=== PATIENT | female | born 1990 | race Caucasian/White ===

== ENCOUNTER → 2017-06-02 12:59 | Outpatient (CLI) | payer BC, MEDICAID, SELFPAY ==
--- NOTE | 2017-06-02 13:00 | HPBI_ITS ---
MAMMOGRAPHY - BILATERAL DIAGNOSTIC REASON FOR EXAM: Female, 26 years old. Positive BRCA1 gene. Right breast lump. PERTINENT HISTORY: Mother with breast cancer. TECHNIQUE: Digital bilateral breast epi (3D mammographic acquisition) in the CC and MLO projections. 2-D mediolateral oblique (MLO) and craniocaudad (CC) views of both breasts were obtained. CAD: Full Field Digital Mammography with Computer Added Detection was performed. COMPARISON: None. Baseline examination. FINDINGS: Breast Composition: There are scattered areas of fibroglandular density. There are no dominant masses or suspicious calcifications. No other significant abnormalities are identified. HPBI/DIAG MAMM W/CAD, BILAT IMPRESSION: Negative diagnostic mammogram. With the patient's history of a palpable lump in the right breast, correlation with ultrasound is recommended. ASSESSMENT CATEGORY: BIRADS Category 0: Incomplete. Need additional imaging evaluation. A letter regarding these results will be sent to the patient by the facility within 30 days. Approximately 10% of breast cancers are not detected by mammography. A normal mammogram should not delay biopsy of a clinically suspicious abnormality. Electronically Signed: Raúl Luke MD at 14:52 EST Tel [phone], Service support ,
--- NOTE | 2017-06-02 13:00 | US_ITS ---
STUDY: ULTRASOUND BREAST - RIGHT REASON FOR EXAM: Female, 26 years old. Palpable lump in the right breast. Right breast pain. TECHNIQUE: Axial and longitudinal images of the RIGHT breast were performed with a high resolution ultrasound transducer. COMPARISON: Comparison is made with prior mammogram done earlier today. FINDINGS: RIGHT Breast: The lower inner quadrant of the right breast was examined by ultrasound. No solid or cystic masses seen. US/Breast Limited Unilateral IMPRESSION: Unremarkable sonographic examination of the lower inner quadrant of the right breast. ASSESSMENT CATEGORY: BIRADS Category 1: Negative. A letter regarding these results will be sent to the patient by the facility within 30 days. Electronically Signed: Raúl Luke MD at 15:23 EST Tel [phone], Service support ,
== END ==
PROVIDERS: Family Provider Internal Medicine; PCP Internal Medicine; Visit Provider Obstetrics & Gynecology
DX: N63.10 Unspecified lump in the right breast, unspecified quadrant (principal); N64.4 Mastodynia
CPT/HCPCS: 76642; 77062; 77066; G0279

== ENCOUNTER → 2017-08-24 16:08 | Outpatient (CLI) | payer BC, MEDICAID, SELFPAY ==
[2017-08-24 17:48] LABS: Chlamydia Trachomatis by PCR Negative (Negative); Neisserai gonorrhoeae by PCR Negative (Negative); Probe Check PASS; Sample Adequacy Control PASS; Specimen Processing Control PASS
== END ==
PROVIDERS: Family Provider Internal Medicine; PCP Internal Medicine; Visit Provider Nurse Practitioner Women's Health
DX: Z11.3 Encounter for screening for infections with a predominantly sexual mode of transmission (principal)
CPT/HCPCS: 87491; 87591

== ENCOUNTER → 2017-08-25 11:45 | Outpatient (CLI) | payer BC, MEDICAID, SELFPAY ==
[2017-08-26 11:42] LABS: HIV - WCH Non-Reactive (Nonreactive)
[2017-08-27 03:07] LABS: HCV Quant. RNA PCR HCV Not Detected IU/mL (.)
[2017-08-27 13:54] LABS: HEPATITIS B SURFACE AG Negative (Negative); HSV 2 IgG < 0.91 index (0.00-0.90)
[2017-08-28 01:20] LABS: Rapid Plasmin Reagin (RPR) NONREACTIVE (NONREACTIVE)
== END ==
PROVIDERS: Family Provider Internal Medicine; PCP Internal Medicine; Visit Provider Nurse Practitioner Women's Health
DX: Z11.3 Encounter for screening for infections with a predominantly sexual mode of transmission (principal)
CPT/HCPCS: 36415; 86592; 86695; 86696; 86703; 87340; 87522

== ENCOUNTER → 2018-01-18 21:33 | Outpatient (CLI) | payer BC, SELFPAY ==
[2018-01-18 23:56] LABS: Chlamydia Trachomatis by PCR Negative (Negative); Neisserai gonorrhoeae by PCR Negative (Negative); Probe Check PASS; Sample Adequacy Control PASS; Specimen Processing Control PASS
[2018-01-31 15:36] LABS: HPV Reflexed? NOT INDICATED
== END ==
PROVIDERS: Family Provider Internal Medicine; PCP Internal Medicine; Referring Provider Nurse Practitioner Women's Health; Visit Provider Nurse Practitioner Women's Health
DX: Z12.4 Encounter for screening for malignant neoplasm of cervix (principal); Z11.3 Encounter for screening for infections with a predominantly sexual mode of transmission
CPT/HCPCS: 87491; 87591; 88175; G0145

== ENCOUNTER 2018-02-07 02:16 | Emergency (ER) | payer BC, SELFPAY ==
[2018-02-07 02:18] VITALS: BP 128/88; PULSE 118; RESP 16; TEMP 36.4; O2SAT 98; BMI 40.3
--- NOTE | 2018-02-07 02:35 | ED.DCSUM_ITS ---
- ER Visit Summary Date of Service: 02/07/18 Chief Complaint: Ear pain, sore throat History of Present Illness: The patient is a 27 F presents to the emergency department multiple complaints. Patient states that she had upper respiratory illness for the past few days. She had worsening sore throat and nasal drainage. She went to urgent care on Thursday. She was diagnosed with a sinus infection and placed on azithromycin. She states she got it filled yesterday and has taken 1 dose. She feels like she is not getting any better. She has had persistent pain in both ears, left greater than right. She is also had worsening sore throat. She has been using ibuprofen with some relief. She has not had any further fever. She said no other vomiting. She denies any cough or shortness of breath. Physical Examination: Vital signs reviewed General: Well-nourished, well-developed Head: Normocephalic, atraumatic Eyes: Pupils equal and reactive, extraocular muscles intact ENT: Posterior oropharynx is widely patent. There is some cobblestoning. Status post tonsillectomy. No evidence of retropharyngeal abscess. No trismus. Right TM shows mild erythema and fluid, but no distortion of the landmarks. Left TM there is erythema and distortion. There is no mastoid tenderness bilaterally. Neck, supple, anterior lymphadenopathy Heart: Regular rate and rhythm Respiratory: No distress, clear bilaterally Abdomen: Soft, nontender, nondistended, no peritoneal signs Back: Nontender Extremities: Nontender, no edema, no cords Skin: Normal color no rash Neuro: Alert and oriented, no focal or lateralizing deficits Test Results: [] Emergency Department Course and Treatment: The patient is already on antibiotic therapy. She has no evidence of abscess, mastoiditis, or other dangerous process. I do feel that she will benefit from prednisone to help with her inflammation. She is given her first dose here. Did patient financial counselor her that she needs to complete the antibiotics even if she is feeling better. I do feel that she is safe for outpatient therapy. She was counseled on concerning symptoms and reasons to return. The patient will be discharged home. Treatment Plan: [] Disposition: Discharge Impression: 1. URI This note was generated with [employer] dictation software. It may contain incorrect words, spelling, and punctuation that were not noted in review of the chart prior to signing ED Disposition - Plan for ED Patient: Chief Complaint: General Illness Instructions: ED Otitis Media Acute Adult Prescriptions: Prednisone [Deltasone] 60 mg PO DAILY #15 tab Referrals: Fredrick Gonzales MD [Primary Care Provider] -
[2018-02-07] MEDS: HYDROcodone Bitartrate/Apap 5/325 Tablet PO (02:40)
[2018-02-07] MEDS: predniSONE 20 MG Tablet 60 MG PO (02:40)
== END 2018-02-07 02:42 | disposition home or self-care (01) ==
LOC: ED 02:35
PROVIDERS: Emergency Provider Emergency Medicine; Family Provider Family Medicine; PCP Family Medicine
DX: J06.9 Acute upper respiratory infection, unspecified (principal); H92.03 Otalgia, bilateral; Z79.899 Other long term (current) drug therapy
CPT/HCPCS: 99283

== ENCOUNTER → 2018-03-01 08:51 | Outpatient (CLI) | payer BC, SELFPAY ==
[2018-02-07 02:18] VITALS: BMI 40.3
--- NOTE | 2018-03-01 08:54 | US_ITS ---
STUDY: ULTRASOUND BREAST - RIGHT REASON FOR EXAM: Female, 27 years old. Pain in the right breast. TECHNIQUE: Axial and longitudinal images of the RIGHT breast were performed with a high resolution ultrasound transducer. COMPARISON: Comparison is made with prior mammogram done earlier in the day and prior ultrasound of the right breast dated June 02, 2017. FINDINGS: RIGHT Breast: There is homogeneous fibroglandular tissue. No solid or cystic mass lesion is seen. US/Breast Limited Unilateral IMPRESSION: No sonographic abnormality is seen. ASSESSMENT CATEGORY: BIRADS Category 1: Negative. A letter regarding these results will be sent to the patient by the facility within 30 days. Electronically Signed: Raúl Luke MD at 10:48 EST Tel [phone], Service support ,
--- NOTE | 2018-03-01 08:54 | BI_ITS ---
MAMMOGRAPHY - UNILATERAL DIAGNOSTIC: RIGHT BREAST REASON FOR EXAM: Female, 27 years old. Patient tested positive for the BRCA 1 gene. PERTINENT HISTORY: Mother with breast cancer. TECHNIQUE: Digital unilateral breast epi (3D mammographic acquisition) in the CC and MLO projections. 2-D mediolateral oblique (MLO) and craniocaudad (CC) views of both breasts were obtained. CAD: Full Field Digital Mammography with Computer Added Detection was performed. COMPARISON: Comparison is made with prior examination dated December 31, 2017. FINDINGS: Breast Composition: There are scattered areas of fibroglandular density. There are no dominant masses or suspicious calcifications. Stable small right axillary lymph nodes. No other significant abnormalities are identified. There has been no significant change since the prior study. BI/DIAG MAMM W/CAD, UNILAT IMPRESSION: Stable unilateral diagnostic mammogram. One year follow-up mammogram recommended. (A) ASSESSMENT CATEGORY: BIRADS Category 2: Benign. A letter regarding these results will be sent to the patient by the facility within 30 days. Approximately 10% of breast cancers are not detected by mammography. A normal mammogram should not delay biopsy of a clinically suspicious abnormality. Electronically Signed: Raúl Luke MD at 11:03 EST Tel [phone], Service support ,
== END ==
LOC: OPUS 08:51
PROVIDERS: Family Provider Family Medicine; PCP Family Medicine; Referring Provider Nurse Practitioner Women's Health; Visit Provider Nurse Practitioner Women's Health
DX: R92.8 Other abnormal and inconclusive findings on diagnostic imaging of breast (principal); Z15.01 Genetic susceptibility to malignant neoplasm of breast; Z15.09 Genetic susceptibility to other malignant neoplasm
CPT/HCPCS: 76642; 77061; 77065; G0279

== ENCOUNTER → 2018-06-21 12:17 | Outpatient (CLI) | payer BC, SELFPAY ==
[2018-06-21 10:45] VITALS: BMI 39.2
[2018-06-21 15:06] LABS: Chlamydia Trachomatis by PCR Negative (Negative); Neisserai gonorrhoeae by PCR Negative (Negative); Probe Check PASS; Sample Adequacy Control PASS; Specimen Processing Control PASS
== END ==
PROVIDERS: Family Provider Family Medicine; PCP Family Medicine; Referring Provider Obstetrics & Gynecology; Visit Provider Obstetrics & Gynecology
DX: Z11.3 Encounter for screening for infections with a predominantly sexual mode of transmission (principal)
CPT/HCPCS: 87491; 87591

== ENCOUNTER 2018-07-22 21:36 | Emergency (ER) | payer BC, SELFPAY ==
[2018-06-21 10:45] VITALS: BMI 39.2
[2018-07-22 21:37] VITALS: BP 155/103; PULSE 96; RESP 16; TEMP 36.6; O2SAT 98; BMI 40.8
--- NOTE | 2018-07-22 21:51 | US_ITS ---
STUDY: ABDOMINAL ULTRASOUND - RIGHT UPPER QUADRANT REASON FOR VISIT: Female, 27 years old. Right upper quadrant abdominal pain. TECHNIQUE: Ultrasound evaluation of the right upper quadrant was performed with real-time and static montanez-scale imaging. TECHNICAL QUALITY: Adequate. COMPARISON: CT of the abdomen and pelvis dated June 15, 2016. FINDINGS: Liver: The liver measures 18.4 cm. There is increased echogenicity consistent with fatty infiltration. The bile ducts are within normal limits. There is hepatic color flow. The direction of portal flow is hepatopetal. There is no demonstrated mass lesion. Gallbladder: Normal distended gallbladder. The gallbladder wall measures 1.7 mm. There is a negative sonographic Miguel's sign. There is no pericholecystic fluid. There are no gallstones. Common Bile Duct (C.B.D.): The common bile duct measures 4.2 mm. Pancreas: Normal size of the head and body of the pancreas. Pancreatic tail is not visualized secondary to bowel gas. There is normal echogenicity of the pancreas. There is no demonstrated pancreatic mass or cyst. Right Kidney: Normal size of the right kidney. The right kidney measures 11.2 x 4.9 x 4.7 cm. Normal renal cortex. The right cortex measures 1.2 cm. There is no demonstrated renal mass or cyst. There is no right hydronephrosis. US/Gallbladder IMPRESSION: 1. Hepatic steatosis. 2. No sonographic evidence for cholelithiasis. Electronically Signed: Bibi Bryan MD at 23:21 EDT , Service support ,
[2018-07-22] MEDS: Ondansetron 4 MG/2 ML Vial IV (22:34)
[2018-07-22] MEDS: 0.9% Normal Saline 1,000 ML 1000 ML IV (22:34)
[2018-07-22] MEDS: Dicyclomine 20 MG/2 ML Vial IM (22:36)
[2018-07-22 22:38] LABS: Absolute Lymphocyte Count 2.16 X10^3/ul (0.83-4.51); Absolute Neutrophil Count 7.4 X10^3/uL (2.0-7.7); Basophil# 0.02 X10^3/uL; Basophil% 0.2 % (0-1); Eosinophil# 0.28 X10^3/uL; Eosinophils% 2.6 % (0-5); Hematocrit 42.2 % (37-47); Hemoglobin 14.7 g/dl (12.0-15.0); Lymphocyte # 2.16 X10^3/ul (4.0); Lymphocyte % 20.1 % (19-41); Mean Corp Hgb Conc 34.8 g/gl (32-36); Mean Corpuscular Hgb 29.3 pg (27.0-32.0); Mean Corpuscular Volume 84.2 fL (81-99); Mean Platelet Vol. 11.3 fl (6.2-12.0); Monocyte# 0.86 X10^3/uL; Neutrophil % 68.9 % (47-70); POSITIVE COUNT NO; POSITIVE DIFFERENTIAL NO; POSITIVE MORPHOLOGY NO; Platelet Count 320 K/mm3 (150-450); RBC Distribution Width SD 39.6 fl (35.1-43.9); Red Blood Count 5.01 M/mm3 (4.2-5.4); White Blood Count 10.7 K/mm3 (4.4-11.0)
[2018-07-22 22:57] LABS: ALB/GLOB Ratio 0.9 RATIO (0.9-2.4); AST(SGOT) 14 U/L (15-37); Alanine Aminotransfer ALT/SGPT 16 U/L (13-56); Albumin, Serum 3.6 g/dL (3.2-5.0); Alkaline Phosphatase 64 U/L (45-117); Anion Gap 8 (5-15); BUN 8 mg/dL (7-18); BUN/Creat Ratio 8.6 RATIO (10-20); Calcium,Total 8.5 mg/dL (8.5-10.1); Chloride 104 mmol/L (98-107); Creatinine, Serum 0.93 mg/dL (0.55-1.02); EST Glomerular Filtration Rate 75 mL/min (>60); Est Glom Filt Rate - Afr Amer 91 mL/min (>60); Estimated Creatinine Clearance 83.56 ml/min; Globulin 3.8 g/dL (2.2-4.2); Glucose 94 mg/dL (74-106); Lipase 64 U/L (73-393); Potassium 3.9 mmol/L (3.5-5.1); Protein, Total 7.4 g/dL (6.4-8.2); Sodium Level 137 mmol/L (136-145)
[2018-07-22 23:12] LABS: Lactic Acid 0.8 mmol/L (0.4-2.0)
--- NOTE | 2018-07-22 23:33 | ED.VISSUMM ---
- ER Visit Summary Date of Service: 07/22/18 Chief Complaint: [Abdominal pain, vomiting, diarrhea] History of Present Illness: The patient is a 27 F [presents the emergency department symptoms that started around 6:30 AM today. Patient was seen by primary care physician and was referred to gastroenterology for follow-up and was ordered an outpatient right upper quadrant ultrasound. Patient complains of upper right abdominal discomfort that is intermittent and describes it as sharp and stabbing that typically will last less than a minute and then returned. Food does not seem infected. Patient also had 5-10 watery stools and she is had 5-10 episodes of vomiting. She denies any fever. She denies any urinary symptoms. She does not think she is .] Physical Examination: [HEENT-PERRLA, EOMI. Cranial nerves II through XII grossly intact. TMs clear. Mucous membranes moist. No adenopathy. Cardiovascular-regular rate and rhythm without murmur or ectopy Lungs-clear to auscultation, chest wall stable without crepitus or subcu emphysema Abdomen-normoactive bowel sounds, soft. Patient has tenderness palpation over right upper quadrant with guarding. There is no rebound, rigidity, or perineal signs. No tenderness over McBurney's. Extremities-intact ?4, normal range of motion, normal pulses, atraumatic] Test Results: [CBC with differential showed a white blood cell count of 10.7, hemoglobin 14.7, hematocrit 42, platelets 320. Chemistries unremarkable. Total bili was 0.60. Alk phos was 64, ALT 16, AST 14, lipase 64. Lactate was 0.8. Gallbladder ultrasound showed hepatic steatosis no evidence for cholecystitis.] Emergency Department Course and Treatment: [Patient received a liter normal same fluid bolus as well as Zofran and Bentyl and she did feel improved.] Treatment Plan: [Patient advised to keep her appointment with gastroenterology. Patient will be given a prescription for Zofran and Bentyl. I suspect she may have a viral gastroenteritis.] Disposition: [Discharged home in stable condition] Impression: [Viral gastroenteritis Abdominal pain] This note was generated with [employer] dictation software. It may contain incorrect words, spelling, and punctuation that were not noted in review of the chart prior to signing ED Disposition - Plan for ED Patient: Referrals: Fredrick Gonzales MD [Primary Care Provider] -
--- NOTE | 2018-07-22 23:37 | ED.DEP ---
ED Disposition - Plan for ED Patient: Instructions: ED Gastroenteritis Viral Prescriptions: Ondansetron [Zofran Odt] 4 mg PO Q8H PRN PRN #10 tab PRN Reason: Nausea Dicyclomine HCl [Bentyl] 20 mg PO TIDAC #20 cap Referrals: Fredrick Gonzales MD [Primary Care Provider] - 3-5 Days
[2018-07-22 23:54] VITALS: BP 143/85; PULSE 64; RESP 16
[2018-07-22] MEDS: Ondansetron ODT 4 MG Tablet PO (23:54)
[2018-07-23 00:21] LABS: Internal QC Validated? YES +Cl - CLEAR BKGD; Pregnancy, Serum, hCG Quali. NEGATIVE Negative
== END 2018-07-22 23:55 | disposition home or self-care (01) ==
PROVIDERS: Emergency Provider Emergency Medicine; Family Provider Family Medicine; PCP Family Medicine
DX: A08.4 Viral intestinal infection, unspecified (principal); R10.11 Right upper quadrant pain; K76.0 Fatty (change of) liver, not elsewhere classified; F32.9 Major depressive disorder, single episode, unspecified; Z79.899 Other long term (current) drug therapy
CPT/HCPCS: 76705; 80053; 83605; 83690; 84703; 85025; 96361; 96372; 96374; 99283; J7030; A4216; J2405

== ENCOUNTER 2018-07-24 02:31 | Emergency (ER) | payer BC, SELFPAY ==
[2018-07-24 02:32] VITALS: BP 159/99; PULSE 86; RESP 16; TEMP 36.4; O2SAT 100; BMI 40.8
--- NOTE | 2018-07-24 02:36 | ED.RN ---
WAS UNABLE TO LEAVE HOUSE TO GET YESTERDAYS RX FILLED.
[2018-07-24] MEDS: 0.9% Normal Saline 1,000 ML 1000 ML IV (03:24)
[2018-07-24] MEDS: proMETHazine 25 MG/ML Syringe 12.5 MG IV (03:24)
[2018-07-24 03:37] LABS: Absolute Lymphocyte Count 2.05 X10^3/ul (0.83-4.51); Absolute Neutrophil Count 5.9 X10^3/uL (2.0-7.7); Basophil# 0.04 X10^3/uL; Basophil% 0.5 % (0-1); Eosinophil# 0.33 X10^3/uL; Eosinophils% 3.7 % (0-5); Hematocrit 39.2 % (37-47); Hemoglobin 13.7 g/dl (12.0-15.0); Lymphocyte # 2.05 X10^3/ul (4.0); Lymphocyte % 23.1 % (19-41); Mean Corp Hgb Conc 34.9 g/gl (32-36); Mean Corpuscular Hgb 29.4 pg (27.0-32.0); Mean Corpuscular Volume 84.1 fL (81-99); Mean Platelet Vol. 11.1 fl (6.2-12.0); Monocyte# 0.56 X10^3/uL; Monocyte% 6.3 % (0-10); Neutrophil # 5.88 X10^3/uL (2.7-7.7); Neutrophil % 66.2 % (47-70); Platelet Count 314 K/mm3 (150-450); RBC Distribution Width CV 12.8 % (11.6-14.6); RBC Distribution Width SD 38.6 fl (35.1-43.9); Red Blood Count 4.66 M/mm3 (4.2-5.4); White Blood Count 8.9 K/mm3 (4.4-11.0)
[2018-07-24 03:38] LABS: POSITIVE COUNT NO; POSITIVE DIFFERENTIAL NO; POSITIVE MORPHOLOGY NO
[2018-07-24 03:57] LABS: ALB/GLOB Ratio 0.9 RATIO (0.9-2.4); AST(SGOT) 18 U/L (15-37); Alanine Aminotransfer ALT/SGPT 18 U/L (13-56); Albumin, Serum 3.3 g/dL (3.2-5.0); Alkaline Phosphatase 56 U/L (45-117); Anion Gap 7 (5-15); BUN 7 mg/dL (7-18); BUN/Creat Ratio 8.2 RATIO (10-20); Calcium,Total 8.4 mg/dL (8.5-10.1); Chloride 108 mmol/L (98-107); Creatinine, Serum 0.86 mg/dL (0.55-1.02); EST Glomerular Filtration Rate 83 mL/min (>60); Est Glom Filt Rate - Afr Amer 100 mL/min (>60); Estimated Creatinine Clearance 90.36 ml/min; Globulin 3.8 g/dL (2.2-4.2); Glucose 116 mg/dL (74-106); Lipase 74 U/L (73-393); Potassium 3.6 mmol/L (3.5-5.1); Protein, Total 7.1 g/dL (6.4-8.2); Sodium Level 140 mmol/L (136-145)
--- NOTE | 2018-07-24 04:06 | ED.DCSUM_ITS ---
- ER Visit Summary Date of Service: 07/24/18 Chief Complaint: Abdominal pain nausea vomiting and diarrhea History of Present Illness: The patient is a 27 F who presents with abdominal pain and vomiting. She complains of initially right upper quadrant abdominal pain that is now become more diffuse and cramping. It began about 3 days ago. She also reports nausea vomiting and diarrhea for the past 2 days. She saw her primary care physician and had an outpatient right upper quadrant ultrasound which showed hepatic steatosis. She was then seen in the emergency department and had unremarkable laboratory studies. She was treated symptomatically with fluids and Zofran and Bentyl. She did feel better on reevaluation. She notes that she has had a stomach issues really for the past 6 years. She has been referred to gastroenterology. She does admit to marijuana use and her last use was the day her current symptoms began. Physical Examination: Afebrile vitals unremarkable Moist mucous membranes Heart regular rate and rhythm Lungs are clear Abdomen soft no reproducible tenderness no guarding no rebound Test Results: CBC BMP hepatic function lipase all normal. Emergency Department Course and Treatment: Patient was treated with IV fluids and Phenergan. She feels much better on reevaluation. We discussed the possibility of cannabinoid hyperemesis syndrome. She notes that she was told by a friend who is a nurse that her symptoms could be related to marijuana. She was counseled on cessation. She was discharged to follow-up as an outpatient and advised to keep her gastroenterology appointment. She understands to return for new or worsening symptoms. She is in agreement with the plan. She was discharged. Treatment Plan: [] Disposition: Discharge Impression: Abdominal pain Vomiting, possible cannabinoid hyperemesis syndrome This note was generated with [employer] dictation software. It may contain incorrect words, spelling, and punctuation that were not noted in review of the chart prior to signing ED Disposition - Plan for ED Patient: Referrals: Fredrick Gonzales MD [Primary Care Provider] -
--- NOTE | 2018-07-24 04:06 | ED.DEP ---
ED Disposition - Plan for ED Patient: Instructions: ED Abdominal Pain Unkn Cause, ED Diet Vomiting Diarrhea Prescriptions: proMETHazine tablet [Phenergan] 25 mg PO Q6H PRN PRN #10 tab PRN Reason: Nausea Referrals: Fredrick Gonzales MD [Primary Care Provider] -
== END 2018-07-24 04:19 | disposition home or self-care (01) ==
LOC: ED 03:15
PROVIDERS: Emergency Provider Emergency Medicine; Family Provider Family Medicine; PCP Family Medicine
DX: R10.11 Right upper quadrant pain (principal); R11.2 Nausea with vomiting, unspecified; R19.7 Diarrhea, unspecified; Z79.899 Other long term (current) drug therapy
CPT/HCPCS: 80053; 83690; 85025; 96361; 96374; 99283; J7030; A4216

== ENCOUNTER → 2018-09-14 13:57 | Outpatient (CLI) | payer BC, SELFPAY ==
[2018-09-14 10:44] VITALS: BMI 40.8
[2018-09-14 19:52] LABS: Chlamydia Trachomatis by PCR Negative (Negative); Neisserai gonorrhoeae by PCR Negative (Negative); Probe Check PASS; Sample Adequacy Control PASS; Specimen Processing Control PASS
== END ==
PROVIDERS: Family Provider Family Medicine; PCP Family Medicine; Referring Provider Nurse Practitioner Women's Health; Visit Provider Nurse Practitioner Women's Health
DX: N89.8 Other specified noninflammatory disorders of vagina (principal); Z11.3 Encounter for screening for infections with a predominantly sexual mode of transmission
CPT/HCPCS: 87070; 87086; 87088; 87205; 87491; 87591

== ENCOUNTER 2019-03-21 09:00 | Outpatient (RCR) | payer BC, SELFPAY ==
[2018-12-17 11:01] VITALS: BMI 40.0
--- NOTE | 2019-03-21 09:05 | BH.SGPN.GN ---
Behaviors/Verbalizations/Mental Status: [] Eye contact is good. Motor activity is appropriate. Appearance is casual. Speech is Appropriate. Mood is anxious. Affect is congruent. Thoughts are linear and logical. No evidence of psychosis. Reviewed daily check in sheet and no reports of suicidal ideations or intent. Client Response/Progress/Benefit: [] Pt participated at times during the group discussion. Emotion for today is anxious. This was pt's first day in IOP. Shared that she entered IOP to Feel like I'm in control of my life and emotions. Sahred the impact that depression has has on her and her functioning in the past several weeks. States that today and this weekend have actually been not that bad ... I haven't been crying all the time. No progress noted as this was pt's first day. Benefited from group support and encouragement. Will continue in IOP to maintain safety, prevent decompensation, and increase healthy coping. Narrative Note: []
--- NOTE | 2019-03-21 10:15 | BH.SGPN.GN ---
Behaviors/Verbalizations/Mental Status: [Client alert and oriented, casually dressed and appropriately groomed. Eye contact good. Motor activity appropriate. Speech within normal limits. Affect congruent, mood anxious, depressed. Thoughts linear, logical, no signs of hallucinations or delusions.] Client Response/Progress/Benefit: [Client able to challenge herself to be an active participant in group despite being first day in IOP tx. Pt providing input, actively listening, as well as taking notes throughout. Indicated that without change, ?we continue to feel like shit?. Group worked together to identify barriers to making changes or taking action in their lives which included: fear of the unknown, fear of failure, comfort zone, denial of need to change, and lack of self-awareness. Group also identified the benefits of taking action which included; increased hope and confidence, improved mental health, no longer feeling ?stuck? or stagnant, and personal growth. Client identified personal areas he would like to take back control of to include: avoidance, negative self-esteem, agitation, and poor boundaries. Shared noticing increased avoidance and agitation impact ability to connect with her family and other supports. Benefited from group through increased awareness of personal areas he wants to improve and benefits to taking action towards mental wellness. Progress noted in ability to engage in group environment and personal reflection of areas she would benefit from making changes for her mental health. Pt is recommended continued IOP level of care to improve mood stability, promote consistent application of healthy coping skills, and prevent decompensation.] Narrative Note: []
--- NOTE | 2019-03-21 11:20 | BH.SGPN.GN ---
Behaviors/Verbalizations/Mental Status: []Client alert and oriented, neatly dressed and groomed. Eye contact good. Motor activity appropriate. Speech within normal limits. Affect constricted, mood depressed. Thoughts linear, logical, no signs of hallucinations or delusions. Client Response/Progress/Benefit: []Client was an active participant AEB client participating in discussion and taking notes throughout session. Client attentive and providing input to discussion of the different zones of taking action as well as the pros and cons of each. Client agreed with peers that it best to push oneself, but to have unrealistic expectations for oneself. Client completed worksheet in which she identified a problem area to focus on, a SMART goal to help work on problem area, and identify additional supports needed to be successful. Client identified she wants to reduce her agitation. Client identified a small goal which is to give herself something to look forward to each morning and reflect on that throughout the day. Client stated additional supports needed to be successful with goal include: visual cues and making this a routine with her daughter. Appeared to benefit from creating a small goal to help client reduce agitation which will improve her mental health. Client?s first day in IOP. Will continue tx to prevent decompensation of depressive symptoms and improve daily functioning. Narrative Note: []
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
--- NOTE | 2019-03-21 15:47 | BH.MDN_ITS ---
Multi-Disciplinary Note - Note 45-min Individual Time Started:: 12:20 Date: 03/21/19 Purpose of session/treatment goals addressed:: Purpose of this session was to establish rapport with pt, gather additional information regarding pt current functioning, symptoms, and stressors impacting mental health. Additional purpose was to discuss tx expectations and begin development of treatment goals. Eye Contact:: Good, Other - tearful at times throughout Motor Activity:: Appropriate Appearance:: Casual Speech:: Appropriate Mood:: Anxious, Depressed Affect:: Congruent Thoughts:: Linear, Logical, No evidence of hallucinations/delusions noted Staff Interventions:: Therapist asked open ended and furthering questions to gather additional information regarding pt's symptoms, current stressors, as well as events leading to IOP admission. Worked with client to explore treatment goals to address in IOP tx. Therapist used strengths perspective to build rapport and help pt identify personal positives and resilience factors. Therapist used empathic responses to provide emotional validation. Applied MO techniques to explore coping strategies that have helped in the past with mental health sx management. Client Response:: Pt open to meeting with this therapist and remained actively engaged throughout session. She reports that her first day in IOP went well and that she enjoyed the shared experience factor of group. Indicated ?I never expected myself to be sitting here? as she has not previously done group therapy, but found it comforting to know she is not the only one struggling with managing mental health symptoms as an adult. Reports feeling hopeful and motivated about treatment. Pt shared that she has been struggling with anxiety and depression since she was a teenager but that severity of symptoms, specifically that of anxiety, were further exacerbated in the past two years since beginning a job in [employer]. Pt noted feeling overwhelmed by the amount of occupational responsibilities she has and that her employer is has not been receptive of making changes when pt has expressed her concerns. Shared feeling ?burnt-out? and ?exhausted all the time? which has begun to cause increased agitation, isolating, and depression. Noted she began smoking marijuana to ?take the edge off? at the end of the day and has been doing so daily for the past year. Insight into impacts of substance use on decreased babs vation and negative self-esteem. Additionally reports hx of impulsive decision making when ?I feel really good? and described hx of impulsive sexual relationships, increased substance use, and high energy. Denies hx of a Bipolar dx. Reports recently returning to counseling at [facility] in [place] where she meets with Fabiana Mcgovern. Currently sees outpatient provider ~1x/month. Shared feeling this was not intense enough which led to seeking IOP tx. Pt reports additional stressors include guilt about not having energy to spend quality time with her six year old daughter, unhealthy boundaries with her ex, finances, lack of time for her own self-care needs. Currently endorsing sx of crying spells, increased agitation, irritability, anxiety, guilt, ruminating thoughts, depression with passive SI, feeling burnt-out, low motivation, and anhedonia. Noted current sx have impacted her ability to function at baseline and resulted in impacts on personal and occupational functioning. Pt identified tx goals as improving emotion regulation skills, improving self-esteem, and identifying healthy means of coping, and re-engaging in healthy activities she used to enjoy. Risks/Concerns:: No risks or concerns noted. Pt denies any active SI though reports passive thoughts of not wanting to be alive. Reports daughter as major protective factor. Denies any plan, or intent as of this date 03/21/19. Future oriented and reports plans to spend time with her daughter this evening. Pt mother lives in apt. below her. Pt aware of and willing to utilize the local crisis resources should she feel unable to maintain safety at any time. Progress Toward Goals/Plan:: Pt new to IOP tx and this is her 1st day in program, therefore limited progress currently noted. Reports she is motivated to make improvements for her mental health and relationships with supports. Pt endorses a depressed and anxious mood, negative thinking, anhedonia, guilt, and irritability. Identified goals for treatment as: improve ability to cope with her emotions, specifically that of agitation, improve self-esteem, improve application of healthy coping skills, and decrease depression. Will continue IOP to prevent decompensation, maintain safety, improve daily functioning, and increase mood stability. Time Stopped:: 13:06
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
--- NOTE | 2019-03-23 09:05 | BH.SGPN.GN ---
Behaviors/Verbalizations/Mental Status: []Client alert and oriented, casually dressed and groomed. Eye contact good. Motor activity appropriate. Speech within normal limits. Affect incongruent-smiling and laughing, but reporting feeling overwhelmed, mood anxious/depressed. Thoughts linear, logical, no signs of hallucinations or delusions. Reviewed client?s symptom tracker. Client scored 3/5 for thoughts of suicide and 0/5 for risk of suicide as of 03/23/19. Future oriented throughout session and hopeful about treatment. Client Response/Progress/Benefit: []Client responded well to session, attentive and providing positive statements. Client reports feeling ?overwhelmed? today due to ongoing stressors at work that lead to client feeling frustrated and invalidated. Client reported she was written up at work ?for things I didn?t even do? and now client is worried about losing her job. Client received positive support and words of encouragement from peers and occupational rehabilitation aide. Client identified her mental health wins which included; making it to group today despite feeling depressed and overwhelmed as well as not being sick anymore. Client stated able to recognize how much effort it takes to wake up and get ready for IOP which is why it is such a significant win today. Client appeared to benefit from connecting with peers. Client?s second day of IOP, no progress to document at this time. Will continue IOP tx prevent decompensation, reduce anxiety, and increase healthy coping skills. Narrative Note: []
--- NOTE | 2019-03-23 09:13 | BH.NA_ITS ---
Physical Data - Vital Signs Temperature: 98.2 F Pulse Rate: 66 Respiratory Rate: 16 Blood Pressure: 100/66 - Height/Weight Height: 1.68 m Weight:: 113.398 kg Weight in Pounds: 250.0 lbs Current Medication Compliance - Medication Compliance Do you take your medication as prescribed?: Yes Nutritional History - Appetite Nutritional Instructions:: If client shows signs of a swallowing problem, weight change of 10 pounds or more in the last month, or is on a diabetic diet, the physician will review and request a dietitian consult, as appropriate. All unintentional weight loss will be referred to the physician for decision on need for dietitian consult. Describe your appetite:: Fair Have you noticed a change in your eating habits lately?: Yes Additional nutritional information:: client states she had a stomach bug on Thursday and has not been able to eat much since. Client states even prior to stomach bug, her appetite has been less than usual. Functional Assessment - Sleep Pattern Describe any problems with sleeping: Client states she feels she is sleeping a lot. Reports sleeping about 7 hours per night. Denies daytime sleeping. - Activities Motor Activity:: Functional Sensory/Communication Assess - Vision Problems Do you have any vision problems?: Glasses - Communication Problems Do you have difficulty understanding what people are saying?: No What is your primary language?: Spanish Medical Problems/History - Gastrointestinal Conditions Comments:: GERD - Cancer History Comments:: no hx cancer, but states she is positive for BRCA breast gene - Pain Assessment Do you have acute or chronic pain?: No - Family History Family History: Family History (Last Reviewed 12/17/18 @ 11:01 by Lachelle Garza) Mother Breast cancer Osteoporosis Grandfather Alcoholism Father Depression Grandmother Asthma Grandmother Colon cancer Surgical History - Surgical History Have you had any surgeries? If so, list type and date:: Yes - tonsils & adenoids removed, LEEP procedure Substance Abuse - Substance Abuse Please describe substance abuse in the last 30 days:: Client denies alcohol and tobacco use. Client states for about the last year, she has used marijuana daily to deal with stress of work. Client states she has not used marijuana since 03/20. Mental Status Summary - Mental Status Significant Findings/Observations on Appearance and Mood:: Client alert and oriented x 4. Client casually groomed. Client cooperative with assessment and makes good eye contact. Client with normal rate and volume with speech, speech coherent and articulated. Client appears mildly depressed and mildly anxious. Client with good attention during assessment. Clients affect appropriate. Client with normal processing and associations. Client denies delusions and hallucinations. Client denies SI at this time. Suicide Assessment - Suicidal Ideation Are you currently or have you been suicidal in the past?: Yes - denies current SI Suicidal Intentional Rating Scale (SIRS): Suicidal thoughts (past) Physician Notification: If Active suicidal thoughts/Will not contract for safety is checked, contact physician and document in the Physician Notification section below. Past Psychiatric History - MH Treatment Hx Past Psychiatric Medications:: Buspar, Zoloft. Client states she only took them for a few days and states she didn't feel right. Age of first mental health symptoms: Client states she was diagnosed with depression and anxiety when she was , about the age of 21. Current providers for mental health treatment (counselor, psychiatrist, case making machine operator, etc.): Client goes to [facility] for counseling and sees Fabiana Mcgovern. Fall Risk Assessment - Age Age: Less than 60 - Mental Status Mental Status: Willing & able to ask for assistance when needed - Physical Status Physical Status: No problems - Impairments Impairments: None - Elimination Elimination: Continent AND independent - Gait or Balance Gait or Balance: Walks independently - Hx of Falls History of falls in the past 6 months: No known history - Medications/Substances Psychotropics:: Antidepressants Medications/substances used within the past 24 hours or ordered to administer: 1-2 of the medications/substances listed above - Total Score Total Points:: 1 RN Summary of Impressions - Impressions Recommendations: Include psychiatric and medical issues, treatment planning recommendations, and discharge planning needs. - Level of Care How do the client's current symptoms and functional deficits support need for this level of care?: Client states that feelings of anxiety and depression have been worsening for the last few months. Client states that her stressor all comes from work. Client states at work, they have been giving her more and more for her to do and she has told them several times that it is more work than one person can do. Client states she has been crying uncontrollably, constant worrying, feelings of irrititabilty, chest tightness from anxiety while at work, isolation. Client states she was just recently started on an antidepressant, Paxil, on 12/14 by her PCP. IOP will promote gains and prevent further decompensation while providing social support, skills training, and promote healthy change behaviors.
[2019-03-23 10:10] VITALS: BP 100/66; PULSE 66; RESP 16; TEMP 36.8
--- NOTE | 2019-03-23 11:25 | BH.SGPN.GN ---
Behaviors/Verbalizations/Mental Status: []Client alert and oriented, casually dressed and groomed. Eye contact good. Motor activity appropriate. Speech within normal limits. Affect congruent, mood euthymic. Thoughts linear, logical, no signs of hallucinations or delusions. Client Response/Progress/Benefit: []Client?engaged during session AEB client providing contributions throughout group session and engaging in activity. Client worked cooperatively with peers during group activity. Client acknowledged the importance of needing to have awareness and put forth the effort to challenge, reframe, and replace distorted thought patterns. Client worked cooperatively with group to challenge distorted thoughts and was attentive in learning strategies to combat distortions. Client reported a distorted thought she will practice reframing is I'm going to lose my job. Client seemed to benefit from increased awareness of cognitive distortions and practicing reframing distorted thoughts. Client to continue IOP level of care to challenge negative thoughts, increase healthy coping and prevent decompensation. Narrative Note: []
--- NOTE | 2019-03-23 14:04 | BH.COMM ---
Communication Note - Communication with Client Communication Note: Vitamin D lab done and results reviewed by Dr. Flynn. Vitamin D supplement ordered through [facility] in [place]. Message left for client to return call to facility.
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
--- NOTE | 2019-03-23 14:10 | BH.DR.ITP ---
Initial Treatment Plan - Patient Information Visit Information: ADMISSION DATE: EXPECTED LOS: 4-6 weeks - Problems/Symptoms Problem #1:: Depression Symptom:: Sadness, fleeting suicidal ideation, decreased sleep Problem #2:: Anxiety Symptom:: Rumination, panic attacks
--- NOTE | 2019-03-25 09:00 | BH.SGPN.GN ---
Behaviors/Verbalizations/Mental Status: [] Eye contact is good. Motor activity is appropriate. Appearance is casual. Speech is Appropriate. Mood is anxious. Affect is congruent. Thoughts are linear and logical. No evidence of psychosis. Reviewed daily check in sheet and reports 1/5 for suicidal ideations and 0/5 for intent. Client Response/Progress/Benefit: [] Pt was an active participant in group discussion. Emotion for today is anxious. Daily symptom tracker notes 5/5 for anxiety and 4/5 for panic attacks. Shared with the group being overwhelmed emotionally. Primary stressor is work. She discussed her stressors at work and how they are impacting her functioning. Notes crying spell, anxiety, panic, suicidal ideations, and depressive symptoms. Tearful at times. Discussed yesterday at work and increased decompensation. Feels that she cannot stabilize her emotions if she has to attend work. Group provided support, feedback, and encouraged. No progress noted. Regression in the past few days. Will continue in IOP to maintain safety, stabilize mood, and increase functioning. Narrative Note: []
--- NOTE | 2019-03-25 10:10 | BH.SGPN.GN ---
Behaviors/Verbalizations/Mental Status: []Client alert and oriented, casual dress and good hygiene. Eye contact good. Motor activity appropriate. Speech within normal limits. Affect congruent, mood euthymic. Thoughts linear, logical, no signs of hallucinations or delusions. Client Response/Progress/Benefit: [] Client was an active participant in group discussion and activity. Attentive during psychoeducation and commenting on the quote. Client reported ?there is never a right time to do something hard?. Client stated ?anytime is the right time to change?. Worked with the group to identify benefits to making changes in our lives which included: increasing resilience, setting and accomplishing goals, and seeing setbacks as a learning tool. Group then identified barriers to change or what keeps us from making changes which included: uncomfortable emotions, low motivation, lack of support, closed mindedness, high expectations, and stubbornness. Client participated along with group in activity where they identified and discussed the emotions related to change. Client was attentive during psychoeducation on the change process. Benefited from increased awareness and understating of emotions, benefits, and barriers related to change. Will continue IOP tx to prevent decompensation, stabilize moods and challenge distorted thoughts. Narrative Note: []
--- NOTE | 2019-03-25 11:11 | BH.SGPN.GN ---
Behaviors/Verbalizations/Mental Status: []Client alert and oriented, neatly dressed and groomed. Eye contact good. Motor activity appropriate. Speech within normal limits. Affect full, mood euthymic. Thoughts linear, logical, no signs of hallucinations or delusions. Client Response/Progress/Benefit: []Client was an active participant AEB client providing input during discussion and engaging in group activity. Client participated in the activity and processed emotions and barriers associated with making change. Client reported making change requires one to cope with uncomfortable feelings. Client appeared to connect with discussion on weighing the pros and cons associated with change and benefited from learning to do so through use of decisional balance sheet. Identified she is currently in the preparation/planning stage of change as client is thinking of ways to be more social and making plans. Client able to identify the pros of isolating less which included; feeling less lonely, feeling less embarrassed, feeling more like herself, and increased self-esteem. Progress noted as client has increased self-awareness and has started learning healthy coping skills. Recommended continued IOP tx to prevent decompensation, improve mood stability, and increase knowledge of healthy coping skills. Narrative Note: []
--- NOTE | 2019-03-25 11:19 | BH.COMM ---
Communication Note - Communication with Client Communication Note: Pt presented to [facility] tearful and requested to speak with this therapist. Pt also brought her mother in for support. Reports significant decompensation in the past 24 hours mainly due to stress at work. Tearful, overwhelmed, unable to concentrate, feels work is out to get her. Per pt and mother she was severly anxious and depressed yesterday and ruminating throughout the night. Unable to function at home and feels that she may need hospitilization. Denies SI. Feels hopeless and overwhelmed. Primary trigger is work. Fearful that she cannot manage. After discussion it was agreed that perhaps a continuous leave from work would be beneficial to stablize mood. Spoke with psychiatrist who is in agreement. KAREN signed for HR and requested that I speak with HR. Spoke with [place] who requested documentation which was sent.
--- NOTE | 2019-03-28 09:02 | BH.SGPN.GN ---
Behaviors/Verbalizations/Mental Status: [Eye contact is good. Motor activity is appropriate. Appearance is casual, grooming appropriate. Speech is Appropriate rate and tone. Mood is agitated, dysthymic. Affect is congruent. Thoughts are linear and logical. No evidence of psychosis. Reviewed daily check in sheet and pt denies any active SI, plan, or intent as of this date.] Client Response/Progress/Benefit: [Pt receptive of session, engaged throughout and open to processing with the group. Pt indicated current emotion as ?agitated? and discussed that this is due to continuing to with effectively communicating with her daughter?s father. She went on to express that this is both a stressor and mental health win, as pt reports frustration in the negativity of her ex when he is around her daughter; however, was able to maintain stability and remain calm while having a conversation via text the previous day to address her concerns. Noted reaching out to her father for additional support during the upcoming holiday when communicating with her ex about their daughter. Pt was receptive of feedback from group and appeared to benefit from supportive environment. Pt identified an additional mental health win as using opposite action to engage in self-care and get dressed for the day. Noted beliefs that tending to her hygiene improves self-confidence and improves her mood. Progress noted in pt improved insight regarding triggers and application coping skills as well as use of supports to help with managing stressors. Pt recommended continued IOP tx to prevent decompensation, and promote application of healthy coping skills, and improve mood stability.] Narrative Note: []
--- NOTE | 2019-03-28 10:12 | BH.SGPN.GN ---
Behaviors/Verbalizations/Mental Status: []Client alert and oriented, neatly dressed and groomed. Eye contact good. Motor activity appropriate. Speech within normal limits. Affect congruent, mood agitated. Thoughts linear, logical, no signs of hallucinations or delusions. Client Response/Progress/Benefit: []Client receptive to session, provided input and actively listening throughout discussion on stress. Able to brainstorm with the group positive and negative aspects of stress on physical and mental health. Client shared if stress becomes too high, one can over-react to small problems which can cause more problems. Client participated in identifying current stressors impacting mental health. Client?s current stressors included; decreased appetite, not being on medication, and dealing with her daughter?s father. Client noted that her most significant stressor currently is not being on medications. Client reports belief that her stress jar is not full at this time. Client stated when her stress becomes too high client will stop functioning at her baseline and cry ?a lot.? Appeared to benefit from gaining awareness of own current stressors and learning about the impact stress has on overall wellbeing. Progress noted as shown by client?s increased insight and reduction in crying spells. Recommend continued IOP tx to promote mood stability and to further increase healthy coping skills. Narrative Note: []
--- NOTE | 2019-03-28 11:15 | BH.SGPN.GN ---
Behaviors/Verbalizations/Mental Status: []Client alert and oriented, casually dressed and groomed. Eye contact good. Motor activity appropriate. Speech within normal limits. Affect congruent, mood euthymic. Thoughts linear, logical, no signs of hallucinations or delusions. Client Response/Progress/Benefit: []Pt engaged in session as evidenced by pt listening attentively to others, giving ideas during activity, and providing input throughout session. Pt worked with the group to complete the challenge activity. Pt actively listening during discussion about the 4 A's of managing stress. Identified she will focus on continuing to work on altering her nighttime routine. Pt stated in the last week she has altered her nighttime routine of talking to her mom and relaxing after putting daughter down to sleep. Pt reported previously she would smoke marijuana every night after put her daughter to sleep. pt stated she believes maintaining this altering of routine will help decrease her overall stress, instead of looking for a quick fix. Pt seemed to benefit from increased awareness of the impact of stress on mental health and increasing repertoire of stress management strategies. Pt to continue in IOP to prevent decompensation, increase healthy coping skills, and challenge distorted thoughts. Narrative Note: []
--- NOTE | 2019-03-28 14:08 | PCM.BH.PN_ITS ---
Progress Note Progress Note: History of Present Illness/Interim History: [] Patient is a 28-year-old single female who is participating in the [place] IOP program and was last seen 5 days ago by me. Her mood continues to be depressed and she feels her mood is worsening as she was unable to get her medication that I prescribed last visit. She feels somewhat irritable and agitated in addition to feeling depressed. She remains quite overwhelmed about returning to work. She still has episodes of uncontrollable crying and sadness. She is still isolating herself and feels worthless. She still has low energy and decreased concentration. She has not used marijuana since starting the IOP program. She denies any suicidal ideation now and says that this has improved. She feels she is really benefiting from the program and is learning skills that will help her tolerate emotional distress. She still has somewhat of a decreased appetite but is trying to eat healthfully. Current Psychiatric Medications: [] Paxil 10 mg p.o. daily (she supposed to discontinue this and start the Latuda but is awaiting a prior authorization for Latuda) Mental Status Examination: [] Is a 28-year-old female who appears normal for stated age. She has many tattoos on her left forearm. She is casually dressed and groomed with good hygiene. She is cooperative during the interview with no psychomotor agitation or retardation. Mood is depressed. Affect is constricted and consistent with depression. Thought processes goal-d irected and organized. Thought content: No evidence of suicidal ideation. No evidence of homicidal ideation, hallucinations or delusions. Concentration remains decreased. Insight: Some present. Impulsivity: Low. Judgment: Intact. 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 She will discontinue the Paxil and start the Latuda 20 mg p.o. with dinner as soon as the prior authorization is approved. She understands Latuda needs to be taken with food in order to be absorbed. The risk, options, possible complications of the medications were discussed with the patient and she understands and accepts these. Her lab results were discussed with her. Her vitamin D was low so she is been started on vitamin D2 50,000 IU p.o. weekly for 3 months. Her TSH was normal. We will see the patient in follow-up in 2 weeks and she will continue to follow-up with her outpatient providers. We will try to obtain a release from work for several weeks for this patient since she is unable to work at this time. Patient felt safe during the interview and if at any time she does not feel safe she will contact us or go to the emergency room.
--- NOTE | 2019-03-28 14:28 | BH.COMM ---
Communication Note - Communication with Client Communication Note: Prior authorization for Latuda submitted to client's insurance company, [employer]. [place] denied. Discussed with Dr. Flynn. Dr. Flynn ordered Seroquel 50mg every night for client, prescription called into [facility]. Called client and discussed with her. Client states pharmacy gave her prescription savings card for Latuda that could not be used until her insurance approved drug or not. Client states she will go to pharmacy with savings card and see if she is able to use it now for Latuda, and if not she will pick remover Seroquel. Client states she will let us know when she comes tomorrow if she was able to get Latuda or if she got Seroquel to take.
--- NOTE | 2019-03-31 10:05 | BH.SGPN.GN ---
Behaviors/Verbalizations/Mental Status: []Client alert and oriented, casually dressed and groomed. Eye contact good. Motor activity appropriate. Speech within normal limits. Affect congruent, mood agitated. Thoughts linear, logical, no signs of hallucinations or delusions Client Response/Progress/Benefit: []Client responded well to session, active and providing good insight to discussion. Client connected with the topic of crisis and identified examples of potential crisis to include loss of a loved one, relationship problems, and disasters. Client shared anything can become a crisis depending on how much stress is going on in a person?s life. Participated in the discussion on how coping with external crisis by using unhealthy coping skills could lead to personal crisis. Group identified unhealthy coping skills to include; ?getting stoned?, sleep, pushing away supports, and avoiding responsibilities. Client shared it is possible to prevent an external crisis from becoming an internal crisis, but it takes awareness of warning signs. Group identified warning signs for crisis which included; negative thoughts, crying uncontrollably, numbing, lack of motivation, and increased agitation. Client completed the personal warning signs worksheet and identified crisis warning signs to include; increased agitation, lack of concentration, and not taking care of herself by not brushing her teeth. Benefited from group by increasing awareness of crisis and personal warning signs. Progress noted as client has increased self-awareness of symptoms and can identify healthy coping skills. Will continue IOP tx as client continues to report ongoing agitation and mood instability. Narrative Note: []
--- NOTE | 2019-03-31 11:12 | BH.SGPN.GN ---
Behaviors/Verbalizations/Mental Status: []Client alert and oriented, casually dressed and groomed. Eye contact good. Motor activity appropriate. Speech within normal limits. Affect congruent, mood euthymic. Thoughts linear, logical, no signs of hallucinations or delusions. Client Response/Progress/Benefit: []Client responded well to session as evidenced by client listening attentively to others and sharing when prompted. Client identified her warning signs for crisis and gained further awareness of her earliest warning signs. Client appeared to connect that awareness of these warning signs can prevent further crisis and help client utilize healthy coping skills to break the cycle. Client created a crisis action plan to help client better manage warning signs for crisis. Client?s plan included using grounding tools, reframing distorted thoughts, positive affirmations, making small daily goals, using supports, and journaling. Client selected tangible items for crisis survival kit that will help her remember these crisis interventions. Client appeared to benefit from creating a crisis action plan and increasing her self-awareness. Client to continue IOP to prevent decompensation, increasing healthy coping and challenging distorted thoughts. Narrative Note: []
--- NOTE | 2019-03-31 14:59 | BH.COMM_ITS ---
Communication Note - Communication with Client Communication Note: Pt informed this therapist of concerns regarding recently prescribed medication. Pt was prescribed Seroquel on 03/28/19 following denial of previously prescribed medication, Latuda, by pt insurance. Pt indicated taking the Seroquel on date prescribed and experienced a variety of side effects including; crying spells, irritability, restlessness, tingling of hand and feet, and increased SI. Pt reports she did not take the medication after that date. Jayesh rodriguez spoke with program nurse regarding pt concerns. Nurse to collaborate with program psychiatrist and follow-up.
--- NOTE | 2019-03-31 15:00 | BH.COMM ---
Communication Note - Communication with Client Communication Note: Discussed client's symptoms with taking Seroquel with Dr. Flynn. Agreed that undersigned will talk with client's insurance company tomorrow to attempt to appeal prior authorization denial.
--- NOTE | 2019-04-01 08:31 | BH.MDN ---
Multi-Disciplinary Note - Note 45-min Individual Time Started:: 09:17 Date: 04/01/19 Purpose of session/treatment goals addressed:: The purpose of this session was to assess current symptoms, stressors, and treatment progress. Another purpose was to wood client in processing recent diagnosis and provide psychoeducation on Bipolar II. Additional topics included: warning signs and symptoms Eye Contact:: Good Motor Activity:: Appropriate Appearance:: Neat, Casual Speech:: Appropriate Mood:: Euthymic, Anxious Affect:: Congruent Thoughts:: Linear, Logical, No evidence of hallucinations/delusions noted Staff Interventions:: Therapist asked open ended and furthering questions to elicit information regarding client current symptoms, stressors, and treatment history. Provided supportive feedback and empathic responses as client discussed current stressors impacting mental health symptoms. Provided psychoeducation on Bipolar II disorder. Used OK techniques to promote healthy change behaviors and aid Pt in beginning to identify personal warning signs and symptoms experienced during manic and depressive episodes. Client Response:: Client was receptive of meeting and responded well to session. She discussed with this therapist recent stressors impacting her mental health, specifically that of irritability. Pt shared that she has felt increased stress and agitation over past several days. Able to provide insight into the potential triggers for increased frustration. Pt indicated that her ex has been in a ?bad mood? lately and has been taking his frustrations out on their daughter. Went on to describe that her ex had made fun of their daughter?s shoes and has been shorter with his responses to her as well. Pt noted that this has lead her to want to say something to him about his behavior and has additionally caused her to want to limit visitation out of retaliation. Insight into the potential consequences of doing so on their daughter and identified that this would just further escalate things. Pt worked with therapist on identifying strategies for addressing her concerns without creating an unnecessary argument. Discussed that she could utilize ?I? statements. Went on to share that she feeling relieved she has been given a diagnosis of Bipolar disorder as Pt indicated that this has given her a sense of clarity and made her feel more hopefully by having a name for her symptoms. Inquired about the diagnosis and why she had not been diagnosed previously. Discussed with Pt factors contributing to a misdiagnosis or missed diagnosis. Pt reports connecting with her initial symptoms being attributed to teenage behavior and defiance, as well as layer episodes being seen as depression rather than a depressive episode. Pt connected with psychoeducation on Bipolar and was able to begin identifying symptoms she has experienced during manic and depressive episodes. Identified high risk behaviors such as impulsive sexual relations, drug use, and starting multiple projects without completing them during times of elizabeth. Identified passive SI, increased irritability, and apathy during times of increased depression. Noted willingness to discuss with supports to identify additional symptoms and warning signs. Risks/Concerns:: No risks or concerns noted. Pt denies any active SI, plan, or intent as of this date. 04/01/19. Progress Toward Goals/Plan:: Progress noted. Pt shared connecting with the group atmosphere and feeling able to identify new skills and increased insight into her own mental health symptoms. Pt reports some improvements in overall mood and hope for the future since beginning IOP program and taking time off from work. Reports decreased apathy and improved confidence since receiving mental health diagnosis. Noted that she continues to struggle with agitation, isolation, and ongoing difficulties with negative self-talk and low motivation levels. Time Stopped:: 10:02
--- NOTE | 2019-04-01 09:46 | BH.COMM ---
Communication Note - Communication with Client Communication Note: Spoke with client's insurance company this AM, prior authorization resubmitted via phone. Client approved for Latuda 20mg daily. Will update client.
--- NOTE | 2019-04-01 09:46 | BH.COMM_ITS ---
Communication Note - Communication with Client Communication Note: Spoke with client's insurance company this AM, prior a uthorization resubmitted via phone. Client approved for Latuda 20mg daily. Will update client.
--- NOTE | 2019-04-01 10:15 | BH.SGPN.GN ---
Behaviors/Verbalizations/Mental Status: [Client alert and oriented, casually dressed and groomed. Eye contact good. Motor activity appropriate. Speech within normal limits. Affect congruent, mood euthymic. Thoughts linear, logical, no signs of hallucinations or delusions. ] Client Response/Progress/Benefit: [Client was an active participant AEB providing input throughout session and appearing engaged. The group discussed the quote and how the emotion anger is not good or bad, but one can respond to anger in healthy or harmful ways. Client listened as the group worked to define anger and its causes, as well as the internal and external impacts of anger. Group identified potential consequences of unhealthy management of anger to include: losing relationships, guilt, internalizing emotions, lashing out, and worsening mental health symptoms. Client identified underlying factors of her anger which included: feeling overwhelmed, frustrated, embarrassed, out of control, self-doubt, and helpless. Client indicated that blank stare, cussing, shutting down, and lashing out are common responses she has when feeling angry. Benefited from group by increasing awareness of the negative impacts of unmanaged anger and underlying factors that contribute to her personal anger. Progress noted given pt increased positive engagement and improved use of supports. Will continue IOP tx to reduce depression, promote healthy change behaviors, and improve mood stability.] Narrative Note: []
--- NOTE | 2019-04-01 11:15 | BH.SGPN.GN ---
Behaviors/Verbalizations/Mental Status: []Client alert and oriented, casual dress, hygiene tended to. Eye contact good. Motor activity appropriate. Speech within normal limits. Affect congruent, mood euthymic. Thoughts linear, logical, no signs of hallucinations or delusions. Client Response/Progress/Benefit: []Pt active participant throughout AEB engagement in both activity and discussion potions of session. Pt did well to challenge herself to complete the group activity and incorporate anger management/emotion regulation skills in order to do so. Pt stated she had a desire to florian during the activity so she didn't have to feel the uncomfortable emotions. Pt reported when she tried to florian during activity it resulted in failure. Pt connected how avoidance of uncomfortable emotions in life doesn't help because won't learn how to effectively manage emotions. Pt worked with the group to identify the various barriers faced in the activity as well as skills used to successfully complete the task at hand without becoming dysregulated or uncontrollably angry. Brainstormed with group healthy coping skills to help manage anger which included: listening to music, changing environment, breathing, coloring, walking, exercise, and petting an animal. She appeared to benefit from brainstorming with the group potential strategies to manage anger in healthy ways. Pt identified plans to begin using deep breathing as a means of coping with anger. Recommended continued IOP to stabilize moods, promote emotion regulation, and prevent decompensation. Narrative Note: []
--- NOTE | 2019-04-04 09:05 | BH.SGPN.GN ---
Behaviors/Verbalizations/Mental Status: [ Eye contact is good. Motor activity is appropriate. Appearance is casual, grooming appropriate. Speech is Appropriate rate and tone. Mood is euthymic. Affect is congruent, bright. Thoughts are linear and logical. No evidence of psychosis. Reviewed daily check in sheet and pt denies any active SI, plan, or intent as of this date. ] Client Response/Progress/Benefit: [Pt responded well to session, engaged throughout and open to processing with the group. Pt indicated current emotion as ?relieved? and discussed that this is due to her new psychiatric medication being approved and pt able to begin taking it without experiencing any side effects. Pt identified this as a win and indicated feeling ?more level and energetic, but a positive energy not manic?. Pt shared an additional win as being able to address conflict with the father of her daughter without it escalating to point of yelling and arguing. Noted that she was able to take a step back and reflect prior to responding. Shared a current stressor as being ?really busy? this week; however, identified this as a eustressor as she is planning to spend time with supports and engage in self-care activities. Pt progress noted per self-report of improved mood stability and conflict resolution skills. Pt recommended continued IOP tx to prevent decompensation, promote ongoing application of healthy coping skills, and further improve emotion regulation.] Narrative Note: []
--- NOTE | 2019-04-04 11:15 | BH.SGPN.GN ---
Behaviors/Verbalizations/Mental Status: []Client alert and oriented, casually dressed and groomed. Eye contact good. Motor activity appropriate. Speech within normal limits. Affect congruent, mood euthymic. Thoughts linear, logical, no signs of hallucinations or delusions. Client Response/Progress/Benefit: []Client willing to participate in activity and provided input during discussion. Client did well to work with the group and actively listen as others provided suggestions/feedback. Client agreed with peers that the group?s attitude toward the activity negatively impacted their ability to succeed. Client stated she recognized she was shutting down in the activity because she was beginning to get frustrated. Client engaged in discussion reviewing positive and negative forces impacting life and mental wellness. Client identified personal positive forces that aid in progressing toward mental health goals include: supports, sobriety, a positive attitude, medication, and setting goals. Client indicated personal negative forces to include: her job, lacking awareness at times, comparing herself to others, toxic people, and a negative attitude at times. Client seemed to benefit from increased awareness of personal positive and negative forces in life and impact they have on mental health and wellness. Progress noted as client reports less crying spells. Will continue IOP level of care to promote mood stability improve daily functioning. Narrative Note: []
--- NOTE | 2019-04-04 11:15 | BH.SGPN.GN ---
Behaviors/Verbalizations/Mental Status: []Eye contact is good. Motor activity is appropriate. Appearance is casual. Speech is Appropriate. Mood is anxious. Affect is full. Thoughts are linear and logical. No evidence of psychosis. Client Response/Progress/Benefit: []Pt was an engaged participant in activity as evidenced by pt providing input at times and attentively listened to others. Group worked together to come up with common negative forces in their lives which can hold them back from growth. Negative forces included: toxic relationships, negative thoughts, low motivation, and poor boundaries. Group then worked together to identify common positive forces which help us grow. Theses included: Healthy coping skills, positive support, self-care, positive self-talk and challenging negative thoughts. Pt reported have a positive attitude and looking for positives can help with personal growth because feel more confident we can make changes. Pt was attentive during psychoeducation on the importance of utilizing many aspects of positive forces to help one grow. Benefited from group with increased insight and awareness on the impact of negative and positive forces on mental wellness. Narrative Note: []
--- NOTE | 2019-04-05 09:02 | BH.SGPN.GN ---
Behaviors/Verbalizations/Mental Status: []Client alert and oriented, neatly dressed and groomed. Eye contact good. Motor activity appropriate. Speech within normal limits. Affect congruent, mood euthymic. Thoughts linear, logical, no signs of hallucinations or delusions. Reviewed client?s symptom tracker, no risk for suicidal ideation, plan, or intent as of 04/05/19. Client Response/Progress/Benefit: []Client responded well to session, engaged and providing supportive statements to peers. Client reports feeling ?content? today. Client shared she went ice skating with her daughter and client was nervous at first, ?but I talked myself through it.? Client also reported that she did her hair and makeup today as a form of self-care. Client stated she has ?a lot going on today? which is a stressor for client. Client reported she plans to take some time for herself and have ?quiet time? today to help client manage stress and prevent feeling overwhelmed. Appeared to benefit from reflecting on her application of coping skills. Progress noted in client?s reduce anxiety and crying spells. Will continue IOP tx to promote mood stability and further decrease intensity of symptoms. Narrative Note: []
--- NOTE | 2019-04-05 10:17 | BH.SGPN.GN ---
Behaviors/Verbalizations/Mental Status: []Eye contact is good. Motor activity is appropriate. Appearance is casual. Speech is Appropriate. Mood is dysthymic and anxious. Affect is congruent. Thoughts are linear and logical. No evidence of psychosis. Client Response/Progress/Benefit: []Participated throughout group discussions, providing input and listening actively. Engaged during psychoeducation portion reviewing fixed mindset. Providing examples throughout. Pt worked with group to identify how a fixed mindset can impact our mental health which included: decreased hope, giving up when faced with a setback, not asking for help, low self-esteem, and isolation/avoidance. Pt identified one fixed thought she has is, I?m never going to be successful or a ?real adult? if I live with my parents. She identified this fixed thought makes her doubt her self-worth and ability to parent, reduces motivation, and leads to increased anxiety. Recognized that this fixed thought results in maintaining symptoms of depression and anxiety, as well as has led to unhealthy coping in the past. Benefited from group by increasing awareness of how one's mindset impacts mental health. Pt to continue IOP level of care to increase utilization of healthy coping skills, challenge distorted thoughts, and prevent decompensation. Narrative Note: []
--- NOTE | 2019-04-05 11:10 | BH.SGPN.GN ---
Behaviors/Verbalizations/Mental Status: []Client alert and oriented, casually dressed and groomed. Eye contact good. Motor activity appropriate. Speech within normal limits. Affect congruent to topic being discussed, mood anxious. Thoughts linear, logical, no signs of hallucinations or delusions. Client Response/Progress/Benefit: []Client engaged during discussion and listened attentively to peers. Client did well to apply cognitive restructuring to reframe previously identified fixed thoughts, transforming her fixed thought from previous group to a growth thought of ?I don't need to compare myself to others because I have an awesome life.? Client shared can put into practice her growth thought by focusing on what she is doing right in life instead of being self-critical. Client participated as the group brainstormed strategies to promote growth-mindset thinking. Benefitted from discussing benefits of growth mindset and brainstorming strategies for prompting growth-mindset. Client displaying progress with increased awareness of unhealthy thought patterns and reporting improved mood stability. Will continue IOP tx to promote gains, improve mood stability and prevent decompensation. Narrative Note: []
--- NOTE | 2019-04-29 09:09 | BH.SGPN.GN ---
Behaviors/Verbalizations/Mental Status: []Eye contact is good. Motor activity is appropriate. Appearance is casual, grooming appropriate. Speech is Appropriate rate and tone. Mood is euthymic, anxious. Affect is congruent. Thoughts are linear and logical. No evidence of psychosis. Reviewed daily check in sheet and pt denies any current SI, plan, or intent. Client Response/Progress/Benefit: []Pt responded well to session, actively engaged throughout and open to processing with the group. Pt indicated current emotion as ?hopeful? and discussed that this is due to successfully completing the IOP program as this is her last day, as well as being able to reflect upon overall progress. Able to identify current mental health wins which included being able to regulate her emotions when faced with potential conflict with her daughter?s father. Shared using positive self-talk in order to do so. Additional win identified as maintaining healthy boundaries in the workplace and not engaging in necessary drama despite her co-workers attempting to bait her into doing so. Appeared to benefit from reflecting upon the progress she has made in challenging anxiety provoking thoughts and utilization of her supports. Pt progress noted per pt report of improved communication and application of boundary setting, as well as healthy skills she has learned in IOP tx. Pt set to discharge from IOP tx given progress made and is recommended to continue with individual outpatient services. Narrative Note: []
== END 2019-04-05 23:59 ==
LOC: BHIOP 09:00
PROVIDERS: Family Provider Family Medicine; PCP Family Medicine; Referring Provider Psychiatry & Neurology Psychiatry; Visit Provider Psychiatry & Neurology Psychiatry
DX: F31.81 Bipolar II disorder (principal)
CPT/HCPCS: H0035; 90834; 90853

== ENCOUNTER → 2019-03-23 12:35 | Outpatient (CLI) | payer BC, SELFPAY ==
[2018-12-17 11:01] VITALS: BMI 40.0
[2019-03-23 12:55] LABS: Absolute Neutrophil Count 2.1 X10^3/uL (2.0-7.7); Basophil# 0.02 X10^3/uL; Basophil% 0.4 % (0-1); Eosinophil# 0.27 X10^3/uL; Eosinophils% 5.9 % (0-5); Hematocrit 42.8 % (37-47); Hemoglobin 14.3 g/dL (12.0-15.0); Mean Corp Hgb Conc 33.4 g/dL (32-36); Mean Corpuscular Hgb 29.2 pg (27.0-32.0); Mean Corpuscular Volume 87.5 fL (81-99); Mean Platelet Vol. 11.2 fl (6.2-12.0); Monocyte# 0.48 X10^3/uL; Monocyte% 10.4 % (0-10); NRBC Flagged by Analyzer 0 % (0-5); Neutrophil # 2.12 X10^3/uL (2.7-7.7); Neutrophil % 46.1 % (47-70); Platelet Count 308 K/mm3 (150-450); RBC Distribution Width CV 12.9 % (11.6-14.6); Red Blood Count 4.89 M/mm3 (4.2-5.4); White Blood Count 4.6 K/mm3 (4.4-11.0)
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
[2019-03-23 13:31] LABS: Vitamin D,25 Hydroxy 14.2 ng/mL (29.95-100.01)
[2019-03-23 13:33] LABS: Thyroid Stim Hormone (TSH) 1.54 uIU/mL (0.358-3.74)
--- NOTE | 2019-03-23 13:39 | BH.DR.ITP ---
Initial Treatment Plan - Patient Information Visit Information: ADMISSION DATE: EXPECTED LOS: 4-6 weeks - Problems/Symptoms Problem #1:: Depression Symptom:: sadness, fleeting suicidal ideation, decreased sleep Problem #2:: Anxiety Symptom:: rumination, panic attacks
--- NOTE | 2019-03-28 13:04 | PCM.BH.PN_ITS ---
Progress Note Progress Note: History of Present Illness/Interim History: [] Patient is a 28-year-old single female who is participating in the [facility] IOP program and was last seen 5 days ago by me. Her mood continues to be depressed and she feels her mood is worsening as she was unable to get her medication that I prescribed last visit. She feels somewhat irritable and agitated in addition to feeling depressed. She remains quite overwhelmed about returning to work. She still has episodes of uncontrollable crying and sadness. She is still isolating herself and feels worthless. She still has low energy and decreased concentration. She has not used marijuana since starting the IOP program. She denies any suicidal ideation now and says that this has improved. She feels she is really benefiting from the program and is learning skills that will help her tolerate emotional distress. She still has somewhat of a decreased appetite but is trying to eat healthfully. Current Psychiatric Medications: [] Paxil 10 mg p.o. daily (she supposed to discontinue this and start the Latuda but is awaiting a prior authorization for Latuda) Mental Status Examination: [] Is a 28-year-old female who appears normal for stated age. She has many tattoos on her left forearm. She is casually dressed and groomed with good hygiene. She is cooperative during the interview with no psychomotor agitation or retardation. Mood is depressed. Affect is constricted and consistent with depression. Thought processes goal-d irected and organized. Thought content: No evidence of suicidal ideation. No evidence of homicidal ideation, hallucinations or delusions. Concentration remains decreased. Insight: Some present. Impulsivity: Low. Judgment: Intact. 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 She will discontinue the Paxil and start the Latuda 20 mg p.o. with dinner as soon as the prior authorization is approved. She understands Latuda needs to be taken with food in order to be absorbed. The risk, options, possible complications of the medications were discussed with the patient and she understands and accepts these. Her lab results were discussed with her. Her vitamin D was low so she is been started on vitamin D2 50,000 IU p.o. weekly for 3 months. Her TSH was normal. We will see the patient in follow-up in 2 weeks and she will continue to follow-up with her outpatient providers. We will try to obtain a release from work for several weeks for this patient since she is unable to work at this time. Patient felt safe during the interview and if at any time she does not feel safe she will contact us or go to the emergency room.
--- NOTE | 2019-03-31 09:02 | BH.SGPN.GN ---
Behaviors/Verbalizations/Mental Status: [Eye contact is good. Motor activity is appropriate. Appearance is casual, grooming appropriate. Speech is Appropriate rate and tone. Mood is agitated, dysthymic. Affect is congruent. Thoughts are linear and logical. No evidence of psychosis. Reviewed daily check in sheet and pt denies any active SI, plan, or intent as of this date.] Client Response/Progress/Benefit: [Pt responded well to session, engaged throughout and open to processing with the group. Pt indicated current emotion as ?agitated? and discussed that this is due to ongoing difficulties with regulating her emotions as well as recent medication issues. Pt identified medication side effects as her current stressors and reports experiencing shakiness, crying spells, and increased suicidal thoughts without plan or intent after beginning recent mood stabilized. She reports stopping the medication and was able to reach out to supports to prevent from escalating to point of crisis. Pt identified that asking supports for help and reminding herself that ?you can do small things to help yourself get through this was a mental health win. Additional win expressed as practicing gratitude the next day and focusing on what positives should could find rather than ruminating on had been stressing her out the previous day. Appeared to benefit from the support and structure of group environment. Progress noted in self-report of improved ability to identify and successfully apply healthy coping strategies for regulating her emotions when identifying warning signs. Pt recommended continued IOP tx to prevent decompensation, promote ongoing application of healthy coping skills, and further reduce mental health sx. Will follow-up with program psychiatrist regarding medication concerns.] Narrative Note: []
== END ==
PROVIDERS: Family Provider Family Medicine; PCP Family Medicine; Referring Provider Psychiatry & Neurology Psychiatry; Visit Provider Psychiatry & Neurology Psychiatry
DX: E55.9 Vitamin D deficiency, unspecified (principal)
CPT/HCPCS: 36415; 82306; 84443; 85025

== ENCOUNTER 2019-04-07 09:00 | Outpatient (RCR) | payer BC, SELFPAY ==
[2018-12-17 11:01] VITALS: BMI 40.0
[2019-04-06 01:06] VITALS: BP 100/66; PULSE 66; RESP 16; TEMP 36.8
--- NOTE | 2019-04-07 09:03 | BH.SGPN.GN ---
Behaviors/Verbalizations/Mental Status: []Client alert and oriented, casually dressed and groomed. Eye contact good. Motor activity appropriate. Speech within normal limits. Affect congruent, mood euthymic. Thoughts linear, logical, no signs of hallucinations or delusions. Client Response/Progress/Benefit: []Pt was an engaged participant in group discussion. Emotion for today is slightly agitated. 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 Pt stated she has made this decision because she is feeling more confident in her abilities and is able to think more clearly now. Pt reported additional mental health positive is maintaining sobriety. Pt stated another positive is she went on a date yesterday which is something she hasn't done in awhile. Pt reported her date went really well and is happy she went. Progress noted in pt reporting increased self-confidence and reporting improved mood. Continued IOP tx recommended to continue healthy coping skills, stabilize moods, and prevent decompensation. Narrative Note: []
--- NOTE | 2019-04-07 10:05 | BH.SGPN.GN ---
Behaviors/Verbalizations/Mental Status: []Client alert and oriented, neatly dressed and groomed. Eye contact good. Motor activity appropriate. Speech within normal limits. Affect congruent, mood euthymic. Thoughts linear, logical, no signs of hallucinations or delusions. Client Response/Progress/Benefit: []Client was an active participant throughout session, contributing to discussion. Commented on the quote sharing, ?even if you make a little progress it?s still a big deal because you?re not going backwards.? Group worked together to define goals and identify the benefits of developing goals which included: increase confidence, seeing progress, reducing black and white thinking, and sense of purpose. Group also discussed short-term and long-term goals as well as the benefits of the two types. Client shared without short-term goals, one could easily burnout. Attentive and contributing during education on developing SMART goals. Benefited from increase awareness of goal-setting methods. Will continue in IOP to increase mood stability and improve daily functioning. Narrative Note: []
--- NOTE | 2019-04-07 11:10 | BH.SGPN.GN ---
Behaviors/Verbalizations/Mental Status: [Client alert and oriented, casually dressed and appropriately groomed. Eye contact good. Motor activity appropriate. Speech within normal limits. Affect congruent, mood anxious and dysthymic. Thoughts linear, logical, no signs of hallucinations or delusions. ] Client Response/Progress/Benefit: [Pt attentive throughout, contributed thoughts to discussion and provided supportive feedback to fellow participants. Engaged in creating own mental health SMART goal. Pt identified goal is to decrease negative self-talk by replacing negative thoughts with 2+ affirmations every day for a week. Pt reported this goal as beneficial by improving self-esteem and reducing irritability. Pt identified potential barriers to accomplishing goal to include: depression, irritability, or forgetting. Pt reported she will overcome barriers by grounding herself so she is more able to identify positive thoughts, practicing emotional release skills, and having someone help hold her accountable. Seemed to benefit from identifying a SMART goal and coming up with strategies to overcome potential barriers. Pt to continue IOP to increase healthy coping skills, improve emotional regulation, and prevent decompensation.] Narrative Note: []
--- NOTE | 2019-04-07 12:52 | BH.MDN_ITS ---
Multi-Disciplinary Note - Note 45-min Individual Time Started:: 12:14 Date: 04/07/19 Purpose of session/treatment goals addressed:: The purpose of this session was to assess current symptoms, stressors, and treatment progress. Another purpose was to address tx goal one focusing on factors impacting pt overall self-worth. Additional topics included: goals for upcoming family session Eye Contact:: Good Motor Activity:: Appropriate Appearance:: Casual Speech:: Appropriate Mood:: Anxious, Dysthymic Affect:: Congruent Thoughts:: Linear, Logical, No evidence of hallucinations/delusions noted Staff Interventions:: Therapist asked open ended and furthering questions to elicit information regarding client current symptoms, stressors, and treatment history. Provided supportive feedback and empathic responses as client discussed current stressors impacting mental health symptoms. Aided pt in identifying and challenging negative self-talk messages. Used PA techniques to promote healthy change behaviors and aid Pt in identifying self-talk messages to improve sense of self-worth. Client Response:: Client was receptive of meeting with this therapist and remained engaged throughout session, openly discussing thoughts, feelings, and concerns. Pt shared feeling ?alright? on this date but noted ongoing difficulties with managing sx of irritability. Provided insight that the recent holiday season may have been contributing to her mood dysregulation as she had spent increased time around multiple family members at once, trying to balance time with friends, and was also expected to coordinate holiday visitation with her daughter?s father. Noted that her daughter?s father has been in a more negative mood lately which made it more difficult to regulate her own emotions and added additional stress. Pt went on to discuss that she had been able to identify when needing time to herself and take breaks. Expressed this was helpful and that she was able to use grounding techniques and relaxation skills to decrease anxiety. Went on to indicated being bothered by a sarcastic remark made by her father when she left the room to take a break. Discussed wanting to address communication in upcoming support session on Thursday. Went on to share going on a date yesterday. Pt discussed that this had gone well and that the circumstances were different than her typical dating dynamics. Pt expressed that she didn?t agree to the date because she was feeling lonely and self-conscious but instead because she felt a genuine connection. Expressed that this was empowering. Able to identify statements to ask herself when considering dating to prevent impulsive or unhealthy relationship dynamics such as. ?Do I have a connection?? and ?Am I willing to spend this time with this person rather than on something else??. Additionally, discussed feeling she needs more time for herself and would benefit from improved self-care though is unsure as to what self-care activities she should engage in. Receptive of creating a daily self-care list to refer to when feeling burnt out or overwhelmed. Risks/Concerns:: No risks or concerns noted. Pt denies any active SI, plan, or intent as of this date. 04/07/19. Progress Toward Goals/Plan:: Progress noted. Pt shared increased insight into her own mental health symptoms, specifically warning signs that she is getting overwhelmed or irritable. Discussed increased ability to take breaks when needed to prevent sx escalation. Pt reports some improvements in overall mood and self- confidence levels. Indicates improved ability to reflect upon decisions and the impact they may have on her mental health before engaging in them which indicates progress. Noted that she continues to struggle with agitation, depression, and ongoing difficulties with distorted thinking patterns and communicating with supports. Recommended continued IOP tx to reduce sx severity, increase healthy skill application, and prevent decompensation. Time Stopped:: 12:57
--- NOTE | 2019-04-11 10:17 | BH.SGPN.GN ---
Behaviors/Verbalizations/Mental Status: [Client alert and oriented, casually dressed and groomed. Eye contact good. Motor activity appropriate. Speech within normal limits. Affect congruent, mood dysthymic. Thoughts linear, logical, no signs of hallucinations or delusions. ] Client Response/Progress/Benefit: [Client an active participant AEB engagement in group activity and providing input during discussion portion of session. Client worked with group to define resilience, sharing that for her it means ?freaking out vs. staying calm?. Client able to make connections between activity and barriers/supports to development of a resilient lifestyle. Shared that ?taking on too much at once? can impact resilience. Client agreed with peers that one can learn to become more resilient throughout life. Client able to work with group to discuss benefits of resilience on mental health which included: increased self-confidence, increased ability to manage adversity, and increased ability to find different solutions to setbacks. Progress in willingness to work in small groups to identify benefits of the ten components to building resilience and report of improved ability to use opposite action when struggling with motivation. Recommended continued IOP tx to promote healthy change behaviors, improve boundaries and mood management, as well as prevent decompensation.] Narrative Note: []
--- NOTE | 2019-04-11 11:18 | BH.SGPN.GN ---
Behaviors/Verbalizations/Mental Status: []Client alert and oriented, casually dressed and groomed. Eye contact good. Motor activity appropriate. Speech within normal limits. Affect congruent, mood euthymic. Thoughts linear, logical, no signs of hallucinations or delusions. Client Response/Progress/Benefit: []Client engaged participant as evidenced by client providing input throughout discussion and listening attentively to peers. Client worked cooperatively with peers to identify how each resiliency component can help increase personal resiliency. Client reported she wants to work on the resiliency component of improve self-awareness of triggers and warning signs. Client stated she will work on increasing self-awareness by asking her mom if she knows any warning signs for client and identifying two positives and one stressor with her mom every evening. Client stated if her mom is unavailable then she will journal that night instead. Client appeared to benefit from identifying goal to improve personal resilience factors. Client to continue IOP to stabilize moods, increase use of healthy coping and prevent decompensation. Narrative Note: []
--- NOTE | 2019-04-11 15:14 | BH.MDN_ITS ---
Multi-Disciplinary Note - Note Family Time Started:: 08:30 Date: 04/11/19 Purpose of session/treatment goals addressed:: Family session with . Purpose of the session was to provide psychoeducation regarding Bipolar Disorder to pt?s mother as well as aid pt in discussing her mental health needs with supports. Other topics addressed included: self-care, boundaries Eye Contact:: Good Motor Activity:: Appropriate Appearance:: Casual Speech:: Appropriate Mood:: Anxious, Depressed Affect:: Full Thoughts:: Linear, Logical, No evidence of hallucinations/delusions noted Staff Interventions:: Therapist asked open ended and furthering questions to as sess current sx, stressors, progress, and barriers impacting mental health and mood stability. Provided psychoeducation on Bipolar II Disorder, including symptoms and diagnostic criteria. Supported pt in advocating for herself and discussing ways her supports can assist pt with mental health needs. Challenged use of distortions. Applied MA techniques to promote healthy change behaviors and establish small daily self-care goals. Client Response:: Pt and her mother were receptive of session and did well to openly discuss thoughts, feelings, concerns, and areas of progress observed. Pt did well to discuss what she has been working on in treatment and describe her understanding of Bipolar Disorder. Pt?s mother was open and receptive to education on Bipolar Disorder AEB asking questions and providing observations throughout. Both pt and pt discussed their views on common symptoms and behaviors pt displays when experiencing a manic or depressive episode. Discussed that irritability and becoming easily overwhelmed are the symptoms most impacting her mental health progress, causing increased tension with supports, and effecting ability to regulate her emotions. Therapist facilitated discussion between pt and her mother on strategies for improving self-care and emotion regulation, as well as identify ways her supports could help promote ongoing treatment progress. Risks/Concerns:: no risks or concerns noted. Progress Toward Goals/Plan:: Progress noted. Pt did well to discuss thoughts and concerns as well as advocate for her mental health needs during session. She was open about impact of current occupational related stress on maintaining sx of depression and anxiety. Able to identify areas in which she has made progress since beginning IOP tx which include increased self-esteem and improve awareness of mental health sx. Pt did well to work with her mother on identifying support needs as well as discussing what she would like her supports to stop doing. Discussed impact of use of sarcasm on increasing pts x of irritability. Progress noted as pt and her support were able to talk through challenges in the relationship in an appropriate way. Continued treatment recommended to stabilize mood, maintain safety, assist in pt transition back to work, and prevent decompensation. Time Stopped:: 09:45
--- NOTE | 2019-04-13 09:05 | BH.SGPN.GN ---
Behaviors/Verbalizations/Mental Status: []Client alert and oriented, neatly dressed and groomed. Eye contact good. Motor activity appropriate. Speech within normal limits. Affect congruent, mood euthymic. Thoughts linear, logical, no signs of hallucinations or delusions. Reviewed client?s symptom tracker, no risk for suicidal ideation, plan, or intent as of 04/13/19 Client Response/Progress/Benefit: []Client responded well to session, engaged and attentive throughout session. Client reports feeling proud that I'm not feeling guilty today. Client stated that for most of her life she has struggled with unjustified guilt anytime client tried to do things for herself or set boundaries. Client shared she is starting to do more things for herself and client does not feel guilty. Client plans to go back to school and has decided to apply for a different job. Client also shared she is three and a half weeks sober today and does not miss smoking. Client able to reflect on how her use of healthy coping skills has allowed client to make more long-term progress. Client shared her stressor today is feeling worried about establishing a new routine with work and school. Appeared to benefit from receiving supportive feedback and reflecting on her ability to cope with daily stressors. Will continue IOP tx to promote use of health coping skills and further improve daily functioning. Narrative Note: []
--- NOTE | 2019-04-13 10:10 | BH.COMM ---
Communication Note - Communication with Client Communication Note: Talked with client per client's therapist, Cora's request. Client states she has been taking her Latuda with lunch for the last few days because she feels so well after she takes it, and she was staying up too late at night when she took it with dinner because she felt so normal for a little while. Client states she feels the drowsniess after taking Latuda is decreasing. Discussed with client taking the medication with food/a meal always, and discussed not taking medication during the day if it made her too drowsiness. Client states she feels a lot of improvement in her symptoms since starting Latuda.
--- NOTE | 2019-04-13 10:20 | BH.SGPN.GN ---
Behaviors/Verbalizations/Mental Status: [Client alert and oriented, casually dressed and groomed. Eye contact good. Motor activity appropriate. Speech within normal limits. Affect congruent to topic being discussed, mood euthymic. Thoughts linear, logical, no signs of hallucinations or delusions.] Client Response/Progress/Benefit: []Pt mostly active participant AEB pt providing input during discussion and taking notes throughout. Pt able to connect with others, as well as provided insight on the negative impact of defining self by mental illness. She discussed struggling with doing so had been what took so long for her to seek help. Group identified social stigma can come from how the media, our thoughts, and upbringing portray mental illness. Pt shared that she has been hesitant to share mental health struggles with others out of fear of judgement and being treated as though something is ?wrong? with her. Group identified media and society portray mental health as: dangerous, negative, unworthy, abnormal, and that it means something is wrong with you. Pt reported societal stigma made her feel she was ?damaged? or ?broken? and held her back from reaching out. Pt seemed to benefit from increased awareness of how societal and internal mental health stigma can impact functioning. Pt progressing with increased input in group and application of emotion regulation skills, though continues to struggle in this area. Pt to continue IOP level of care to continue use of healthy coping skills, reduce mental health sx severity , and prevent decompensation. Narrative Note: []
--- NOTE | 2019-04-13 11:20 | BH.SGPN.GN ---
Behaviors/Verbalizations/Mental Status: []Client alert and oriented, casually dressed and groomed. Eye contact fair. Motor activity restless. Speech within normal limits. Affect congruent to topic being discussed, mood euthymic. Thoughts linear, logical, no signs of hallucinations or delusions. Client Response/Progress/Benefit: [] Client responded well to session, engaged in activity and actively listening as well as providing input to discussion. Engaged in activity about facts and statistics of mental illness. Group identified the benefits of addressing stigma which included: increased self-confidence, takes some of the power away from stigma, increases personal and social awareness, and increases validation. Group brainstormed strategies to combat social and perceived stigma which included: education others, no longer using negative labels about mental illness, being open about mental health, and don't reinforce stigma. Client reported she is going to work on reducing mental health stigma by being more open about her own struggles. Appeared to benefit from increasing awareness of strategies to combat stigma. Will continue IOP tx to stabilize moods, continue to challenge unhealthy thinking, and prevent decompensation. Narrative Note: []
--- NOTE | 2019-04-15 09:05 | BH.SGPN.GN ---
Behaviors/Verbalizations/Mental Status: [] Eye contact is good. Motor activity is appropriate. Appearance is casual. Speech is Appropriate. Mood is depressed. Affect is flat. Thoughts are linear and logical. No evidence of psychosis. Reviewed daily check in sheet and no reports of suicidal ideations or intent. Client Response/Progress/Benefit: [] Pt was an active participant in group discussion. Emotion for today is annoyed. Daily symptom tracker notes 3/5 for anxiety and 1/5 for agitation. Able to identify mental health wins as finishing up her enrollment for school. 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 Completed self-care yesterday. Tearful at times. She talked with her ex last night on the phone which caused a great deal of anger and sadness. States He got inside my head. Ruminating and dwelling on some of ex's negative comments. Group provided feedback on ways to manage this. Over the years she has set up boundaries with him and appears upset due that she is struggling with some of his comments. Also noted that she returns to work next week. She states that she is not as stressed as she thought she would be. Benefited from group support, encouragement, and feedback. Progress noted per pt report. Will continue in IOP to prevent decompensation, maintain gains, and transition back to work. Narrative Note: []
--- NOTE | 2019-04-15 10:05 | BH.SGPN.GN ---
Behaviors/Verbalizations/Mental Status: []Client alert and oriented, casually dressed and groomed. Eye contact good. Motor activity appropriate. Speech within normal limits. Affect congruent, mood euthymic. Thoughts linear, logical, no signs of hallucinations or delusions. Client Response/Progress/Benefit: []Client active participant as shown by client?s contribution to discussion and positive insight. Client agreed with peers that self-care is important because it helps reduce stress and ?make us better for others.? However, client shared she struggles to practice self-care sometimes because ?we feel like we don?t deserve it.? Client helped the group discuss benefits of self-care. Benefits included; improved relationships, more patience, less stress, more tolerance for stressors, and increased self-worth. Client participated in the discussion of the common myths about self-care including self-care is selfish, always fun, too much effort and time, and not worth it. Client participated in the discussion and debunking of these myths. Group stated that everyone is worthy of self-care and by practicing self-care daily, it can prevent major setbacks. Client seemed to benefit from increased awareness of the importance of self-care and challenging common myths that prevent clients from practicing self-care. Client showing progress as shown by client?s report of improved mood stability and reduced guilt. Will continue IOP tx to promote gains and to further decrease negative thinking. Narrative Note: []
--- NOTE | 2019-04-15 11:05 | BH.SGPN.GN ---
Behaviors/Verbalizations/Mental Status: []Client alert and oriented, casually dressed and groomed. Eye contact good. Motor activity appropriate. Speech within normal limits. Affect congruent, mood euthymic. Thoughts linear, logical, no signs of hallucinations or delusions. Client Response/Progress/Benefit: []Client receptive of session, actively listening and providing good insight to discussion. Willing to complete worksheet activity and helped the group identify self-care activities. Participated as the group further processed the activity and connected that maintaining self-care requires balancing life stressors and making oneself a priority. Client completed self-assessment activity on the different areas of self-care and was able to identify current practices she uses and identify areas she can improve upon. Client reported she can improve her emotional self-care. Client set a goal to improve in the area of emotional self-care. Client?s goal is to set boundaries with her daughter?s dad narseh. Client shared this would benefit client because it would reduce anxiety and promote self-empowerment. Client appeared to benefit from increasing awareness of how she can improve her self-care balance. Progress noted as client reports reduced crying spells, ongoing sobriety, and application of coping. Will continue IOP tx to promote use of healthy coping skills and further decrease anxiety. Narrative Note: []
--- NOTE | 2019-04-18 09:05 | BH.SGPN.GN ---
Behaviors/Verbalizations/Mental Status: []Client alert and oriented, casual dress, hygiene tended to. Eye contact good. Motor activity appropriate. Speech within normal limits. Affect congruent, mood dysthymic and anxious. Thoughts linear, logical, no signs of hallucinations or delusions. Reviewed client?s symptom tracker, no signs of suicidal ideation, plan, or intent as of today. Client Response/Progress/Benefit: []Patient responded well to session as evidenced by openly sharing thoughts and feelings and attentive to others. Pt stated mental health positive was verbalizing to her mom honestly about how comments her mom made in the past negatively impacted pt's view of self. Pt reported when she was a kid her mom, whom pt states is skinny, would make comments about being fat. Pt reported this made her feel disgusting because she is bigger in size than her mom. Pt stated it felt refreshing to be able to be honest with her mom. Pt stated another positive was having a good interaction with her daughter's father over the weekend. P reported he has offered to pay for various bills that in the past he would not have done. Pt reported despite having a positive weekend she is feeling blah this morning. Pt shared she believes she is blah because she starts school tonight, returns back to work this week, and starts new work schedule. Pt stated she is trying to focus on the current moment. Progress noted with patient reporting improved mood, using healthy coping, and prevent decompensation. Narrative Note: []
--- NOTE | 2019-04-18 10:20 | BH.SGPN.GN ---
Behaviors/Verbalizations/Mental Status: []Eye contact is good. Motor activity is appropriate. Appearance is casual. Speech is Appropriate. Mood is anxious. Affect is constricted. Thoughts are linear and logical. No evidence of psychosis. Client Response/Progress/Benefit: []Client was an active participant in group discussion and activity. Commented on the quote sharing that continuing down the ?easy? path can lead to unhealthy coping skills and losing one?s job. Group identified several definitions which included; engaging in choices that keep us stuck, unexpected dangers, and unforeseen difficulty. The group discussed the consequences of continuing to fall into pitfalls or not address pitfalls which included; hospitalization, increased mental health symptoms, and loss of employment or relationships. Attentive during psychoeducation on the impact of how one jhony with or manages pitfalls in regard to mental health. Group worked together to identify what keeps us stuck or vulnerable to pitfalls which included; lack of resources, stigma, feeling uncomfortable, it is hard to go against the norm, and difficulty seeing the big picture. Client shared overcoming pitfalls is not easy, but there are many mental health benefits. Benefited from increased awareness on the impact that pitfalls can have on mental health. Progress noted as shown by client?s reduced crying spells and improved boundary setting. However, client currently reports increased anxiety due to returning to work and starting school this week. Narrative Note: []
--- NOTE | 2019-04-18 11:21 | BH.SGPN.GN ---
Behaviors/Verbalizations/Mental Status: [Client alert and oriented, casually dressed and groomed. Eye contact good. Motor activity appropriate. Speech within normal limits. Affect constricted, mood anxious, dysthymic. Thoughts linear, logical, no signs of hallucinations or delusions.] Client Response/Progress/Benefit: []Client receptive of session, engaged throughout AEB client contributing to discussion and taking notes. Processed activity with group and connected it to overcoming personal pitfalls in life. Client completed a worksheet where she identified personal pitfalls impacting mental health progress. Identified pitfalls as: negative self-talk, lack of communication, not knowing what to say, poor emotion regulation, and inappropriate responses to others. Client recognized that with awareness and use of healthy coping skills, it is possible to prevent or better manage pitfalls. Attentive during psychoeducation on strategies to overcome pitfalls, however appeared to become distracted by own thoughts AEB decreased input and becoming tearful while completing worksheet. Client stated she will work on pitfall of anxious thoughts by doing yoga to relax and ?shifting my perspective?. Benefited from identifying personal pitfalls and strategies to overcome these pitfalls, as well as support provided by group. Progress noted as client reported improved insight and ability to identify ways to reduce anxiety when recognizing it. Will continue IOP tx to maintain gains, improve emotion regulation and distress tolerance, and prevent decompensation as she transitions back to work. Narrative Note: []
--- NOTE | 2019-04-18 16:31 | BH.MDN_ITS ---
Multi-Disciplinary Note - Note 45-min Individual Time Started:: 12:17 Date: 04/22/19 Purpose of session/treatment goals addressed:: Purpose of session was to assess pt's current symptoms and stressors impacting daily functioning and treatment progress. Other topics included addressing anxiety associated with return to work and create a self-care plan for return to work. Eye Contact:: Good - tearful Motor Activity:: Appropriate Appearance:: Casual Speech:: Appropriate Mood:: Anxious, Dysthymic Affect:: Full Thoughts:: Logical, Racing, No evidence of hallucinations/delusions noted Staff Interventions:: Therapist asked open-ended and furthering questions to elicit information regarding current symptoms, stressors, and tx goal progress. Provided supportive feedback and empathic responses as client discussed increased anxiety about return to work. Therapist guided pt through mindfulness exercises to reduce anxiety and return to baseline. Applied AK techniques to aide client in identifying strategies for reducing stress in the workplace, improving self-care/emotion regulation before and after work, and reviewed calming skills she may apply in times of increased anxiety. Client Response:: Pt receptive of session and actively engaged throughout discussion. She shared feeling overwhelmed and anxious as tomorrow is her first day back to work after taking FMLA. Pt became tearful as she discussed concerns about return to and fear of being give more responsibilities than she is able to manage. Pt and therapist further explored and discussed specific concerns about her return to work. Pt indicated fears of experiencing panic while in the workplace, being asked a lot of questions by the person who took over her old position or by others about why she took time off work, as well as fears becoming overwhelmed. Pt did well to work with therapist on identifying strategies for easing herself back into the flow of her work routine and means of preventing from becoming overwhelmed. Pt identified that engaging in self- care tonight to prepare herself for tomorrow would be helpful. Additionally, pt noted that prior to taking time off she would not actually take her break when scheduled and often used to work through lunch> Identified the consequences this had on her mental health and shared that she could instead begin using those times to destress and engage in mindfulness. Pt and therapist discussed calming skills that she could utilize if she becomes overwhelmed or anxious. Pt indicated that she could take a break and go to the loading dock for time alone or outside if the weather is nice. 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 Shared that she could additionally ask her mother to watch her daughter on particularly stressful days so she has time for self-care after work. Risks/Concerns:: No risks or concerns noted. Pt denies any active SI, plan, or intent as of this date. 04/18/19. Progress Toward Goals/Plan:: Some regression as pt entered session in panic and very tearful due to anxious thoughts about returning to work on this tomorrow. She did however display progress in ability to use mindfulness skills to return to baseline and work with therapist on identifying an anxiety management plan for her first day back on the job. Pt shared that setting aside time for self- care at work and outside of the work environment would prevent burnout and aid in improving overall mood in the workplace. Additionally, pt did well to identify distress tolerance skills she may use which indicates increased insight. Pt recommended continued IOP tx to aid in managing anxiety during transition back to work, improve emotion regulation skills, and prevent decompensation. Time Stopped:: 13:00
--- NOTE | 2019-04-20 09:04 | BH.SGPN.GN ---
Behaviors/Verbalizations/Mental Status: [Eye contact is good. Motor activity is appropriate. Appearance is casual, grooming appropriate. Speech is Appropriate rate and tone. Mood is agitated, euthymic. Affect is congruent. Thoughts are linear and logical. No evidence of psychosis. Reviewed daily check in sheet and pt denies any active SI, plan, or intent as of this date. ] Client Response/Progress/Benefit: []Pt responded well to session, engaged throughout and open to processing with the group. Pt indicated current emotion as ?agitated but hopeful? and discussed that this is due to feeling happy about how her transition back to work went but agitated that she feels her medication continues to inconsistently be effective. Insight that medication is a trial and error process and shared trying to remain patient. Able to identify current mental health wins which included knowing a personal limit and taking steps to adjust the number of responsibilities on her plate by choosing to wait on returning to school until she feels she has more time and fewer immediate stressors. Shared this will help to prevent unnecessary burnout. Additional win identified as continuing to make progress with consistently applying stress management and emotion regulation skills which aided in her transition back to work. Appeared to benefit from reflecting upon the skills she applied to successfully maintain gains made, as well as the support of the group environment. Pt progress noted per pt report of improved symptom management and application of healthy skills. Pt recommended continued IOP tx to prevent decompensation, promote ongoing application of healthy coping skills, and further reduce mental health sx severity. Narrative Note: []
--- NOTE | 2019-04-20 10:20 | BH.SGPN.GN ---
Behaviors/Verbalizations/Mental Status: []Client alert and oriented, casually dressed and groomed. Eye contact good. Motor activity appropriate. Speech within normal limits. Affect congruent, mood euthymic. Thoughts linear, logical, no signs of hallucinations or delusions. Client Response/Progress/Benefit: []Client responded well to session, attentive and engaged throughout. Participated in the group discussion to define and identify differences between internal and external conflict. Client reported ?without conflict there?s no growth.? Client shared that denial can make people not confront conflicts. Group reported the benefits of addressing conflict included personal growth, stress relief, preventing further consequences, and better relationships. Group identified and discussed consequences of not addressing conflict in healthy ways which included: resentment, damaged relationships, increased mental health symptoms, and not getting one?s needs met. Participating during psychoeducation on different conflict styles such as avoiding, accommodating, competing, and collaborative. Benefited as client was able to identify and define conflict as well as increase awareness of how conflict style impacts mental health. Progress noted as shown by client?s improved emotional regulation. Will continue IOP tx to promote gains and further improve daily functioning. Narrative Note: []
--- NOTE | 2019-04-20 11:25 | BH.SGPN.GN ---
Behaviors/Verbalizations/Mental Status: []Client alert and oriented, casually dressed and groomed. Eye contact good. Motor activity appropriate. Speech within normal limits. Affect congruent, mood anxious and dysthymic. Thoughts linear, logical, no signs of hallucinations or delusions. Client Response/Progress/Benefit: []Client responded well to session, providing to discussion and activity. Contributed to ongoing discussion of the different conflict resolution styles, drawbacks, and appropriate times of use. Client stated she most often avoids conflict because doesn't want to feel uncomfortable emotions . Client stated she recognizes avoidance of conflict makes her feel stuck in her situation which reinforces belief that she can't handle the conflict. Client worked cooperatively with group to identify healthy strategies to manage the different conflict scenarios provided. Client stated she will work on improving her conflict resolution style by being mindful of her emotions before attempting to resolve a conflict. Client appeared to benefit from increasing awareness of her personal conflict resolution style and from learning ways to increase healthy conflict resolution. Progress noted as client is able to note how her current way of resolving conflict negatively impacts her mental health. Will continue IOP tx to maintain gains, improve emotional regulation and prevent decompensation. Narrative Note: []
--- NOTE | 2019-04-20 11:56 | PCM.BH.PN_ITS ---
Progress Note Progress Note: History of Present Illness/Interim History: [] The patient is a 28-year-old single female who is seen in follow-up at the [facility] program. The patient was last seen 3 weeks ago by me. She states that her mood is much better since starting the Latuda. We had trouble getting the Latuda approved so the patient was given a prescription for Seroquel. But she took the Seroquel only one night and it made her extremely tired and increased her depression and made her suicidal so we stopped the Seroquel. The patient started the Latuda around April 01 (about 2-1/2 weeks ago). She is taking 20 mg with food and she has noticed some side effects of drowsiness and heaviness or tingling in her arms. She has experimented with changing the time she takes the Latuda and she feels that she has the least side effects when she takes the Latuda at bedtime with a lycopene of butter sandwich. Her mood is vastly improved but still she would say mildly down. Her irritability is again also vastly improved and minimal irritability now. Rarely does she cry now. She said she had her period recently and her mother could not even tell that she had any PMS or PMDD symptoms. She has not used any marijuana for over a month and has not used any alcohol for over a month. She states that she feels Latuda has been very beneficial for her. Sometimes she feels a little agitated if she takes it at night when she wakes up in the morning. The patient feels she is benefiting from the program and especially enjoys using opposite actions and positive thinking to help her cope with her emotional distress. Her sleep is good and appetite is good. She denies any suicidal ideation, homicidal ideation, or passive thoughts of . Current Psychiatric Medications: [] Paxil 10 mg (this was discontinued on March 28, 2019 and patient tolerated stopping it well); Latuda 20 mg p.o. rufino ly with food (since April 01, 2019 Mental Status Examination: [] Is a 28-year-old female who appears normal for stated age. She is casually dressed and groomed with good hygiene. She is cooperative and pleasant during the interview. She has no psychomotor agitation or retardation. Her mood is mildly depressed. Affect is full and normal. Thought processes goal-directed and organized. Thought content: No evidence of suicidal or homicidal ideation. No evidence of hallucinations or delusions. Concentration is much improved and approaching normal. Insight: Some present. Impulsivity: Low. Judgment: Intact. Diagnoses: [] Pingree I: [] BiPolar 2 disorder, most recent episode depressed; history of marijuana and alcohol use disorders Pingree II: [] Deferred Pingree III: [] Negative Pingree IV:[]] Primary support, work issues Plan: [] Patient will continue the IOP program at the [facility] as the structure, support, education, group and individual therapy will benefit the patient and hopefully prevent worsening of her symptoms that might require hospitalization. She agrees to increase her Latuda to 40 mg p.o. nightly with food. The risks, options, possible complications and side effects of the medications were discussed with the patient and she understands and accepts these. She will continue also her vitamin D3 50,000 units p.o. once a week for 3 months. I will follow-up with the patient in 2 to 3 weeks. She will continue to follow-up with her outpatient providers. She felt safe during the interview and if at any time she does not feel safe she will tell us at the IOP program or go to the emergency room.
--- NOTE | 2019-04-20 16:24 | BH.TPR ---
Treatment Plan Review Date of Admission:: 03/21/19 Date of Treatment Plan Review:: 04/20/19 Admitting Diagnoses:: Bipolar 2 disorder most recent episode depressed Current Diagnoses:: Bipolar 2 disorder most recent episode depressed Patient's Response to Treatment:: Since beginning the IOP tx program, Pt has displayed active levels of engagement in the treatment process. Pt has maintained consistent attendance throughout. Pt has done well to remain an active participant in both individual and group sessions, provides supportive feedback, and is able to make connections with material presented. Pt has remained consistent with psychiatric medication compliance, though has had various issues with medication side effects. Throughout admission in IOP treatment, she has been willing to actively apply materials discussed in both individual and group sessions, regularly completes homework, and engages in self-reflection. Pt has additionally had a family session in which she was able to talk with supports about her mental health needs and improved communication strategies. Status of Current Problems and Symptoms: Pt has made significant progress in treatment which is evidenced by improved ability to regulate emotions, reduce use of unhealthy coping mechanisms, and self-report. Pt has done well to ?sit with the uncomfortable? and reports decreased irritability or reliance on unhealthy coping skills; however, could continue to benefit from working on this area. Additionally, pt has seen a reduction in depressive sx, as well as severity and duration of negative thinking. She indicates fewer crying spells, better use of healthy communication skills, improved use of opposite action, increased self-care, and continues to work on challenging distorted thought patterns. Pt continues to struggle with setting boundaries and continues to experience interpersonal conflict as a result. Additionally, pt notes difficulties with balancing occupational, personal life, and IOP treatment. Problem #1 Problem Name:: Depression Status of Goals:: Partially complete. Pt is making progress on this objective. Notes a reduction in depression sx AEB self-report, no longer reporting suicidal ideation, and increased application of self-care strategies. Obj 1- Complete. Pt reports a reduction in overall depressive sx and reports reduction of SI, increased engagement in activities she used to enjoy, and reduced apathy. Obj 2 - Pt is able to actively identify negative self-talk messages and healthy coping strategies; however, continues to report struggling with negative thoughts during times of high anxiety, and struggles to utilize healthy coping skills on a consistent basis. Team Recommendations:: Client encouraged to continue working on this treatment goal to reinforce healthy coping skills and continue to further decrease symptoms of depression. Client and therapist currently working on thought challenging and practicing calming skills. Will continue IOP tx to maintain gains and continue to decrease depression related sx. Problem #2 Problem Name:: Anxiety Status of Goals:: Partially complete. Pt continues to make significant strides in reduction of anxiety sx. Notes a reduction in anxiety overall; however, struggled in managing anxiety while working to transition back to work. Obj1- Pt reports awareness of anxiety triggers and some warning signs. Pt indicates that he an increase in ability to identify healthy coping and distress tolerance skills; however, struggles with independently applying coping skills. Pt still needs some work in this area. Team Recommendations:: Client encouraged to continue working on this treatment goal to reinforce healthy coping skills and continue to further decrease symptoms of anxiety. Client and therapist currently working on thought challenging and practicing calming skills. Will continue IOP tx to maintain gains and continue to decrease anxiety related sx.
--- NOTE | 2019-04-27 09:00 | BH.SGPN.GN ---
Behaviors/Verbalizations/Mental Status: []Eye contact is good. Motor activity is appropriate. Appearance is casual, grooming appropriate. Speech is Appropriate rate and tone. Mood is euthymic. Affect is congruent. Thoughts are linear and logical. No evidence of psychosis. Reviewed daily check in sheet and pt denies any active SI, plan, or intent as of this date. Client Response/Progress/Benefit: [] Client responded well to session, attentive and engaged throughout session. Client reports feeling peppy today and shared that things have been going really well in her home and work lives. Client's mental health wins today included having more support at work and being more consistent with doing yoga. Client shared that her new boss is supportive and client is able to go home and not think about work. Client stated yoga has helped client reduce the negative impact of her medication side effects. Client reports belief she is coping well with her symptoms and better managing daily stressors. Client's stressor today is that her family has been sick. Appeared to benefit from reflecting on her progress and application of coping skills. Will continue IOP tx to promote gains, further improve daily functioning, and establish aftercare. Narrative Note: []
--- NOTE | 2019-04-27 10:14 | BH.SGPN.GN ---
Behaviors/Verbalizations/Mental Status: []Client alert and oriented, casually dressed and appropriately groomed. Eye contact good. Motor activity appropriate. Speech within normal limits. Affect congruent, mood euthymic. Thoughts linear, logical, no signs of hallucinations or delusions. Client Response/Progress/Benefit: []Client participated in discussion and connected with peers. Client connected with discussion on impact anxiety can have on behavior. Client gained awareness of personal physical symptoms of anxiety. Client shared some of her physical symptoms of anxiety include: headaches, hives, back pain, sweaty palms, and muscle tightness. Client identified avoidance, isolation and lashing out as a safety behaviors she has engaged in that provide short term relief but increase anxiety over time. Client stated in the past she used alcohol and drugs as a safety behavior to manage anxious symptoms. Client appeared to benefit from gaining insight to safety behaviors and how anxiety manifests itself, as well as harmful impact of safety behaviors on mental health. Will continue IOP to prevent decompensation of symptoms, continue use of healthy coping and maintain gains.
--- NOTE | 2019-04-27 11:19 | BH.SGPN.GN ---
Behaviors/Verbalizations/Mental Status: []Client alert and oriented, casual in appearance. Eye contact good. Motor activity appropriate. Speech within normal limits. Affect congruent, mood anxious and euthymic. Thoughts linear, logical, no signs of hallucinations or delusions. Client Response/Progress/Benefit: []Pt an active participant during discussion, providing input to discussion and asking questions throughout. Pt able to connect with the discussion reviewing three categories of skills for managing anxiety which included mind-based, body-based, and self-soothing. Listened to group brainstorm various skills within the different categories. Pt identified she is willing to try deep breathing and getting back into yoga to increase her use of body-based and mind-based relaxation skills. Pt seemed to benefit from increased awareness of healthy skills to manage anxious symptoms and identifying skills willing to practice outside treatment environment. Pt progress noted in self-reported reduction in anxiety and increase in emotion regulation and ability to make connections with materials reviewed. Recommended to continue IOP level of care to continue to increase healthy coping skills, identify and challenge distorted thoughts, and prevent decompensation. Narrative Note: []
--- NOTE | 2019-04-27 15:01 | BH.COMM_ITS ---
Communication Note - Communication with Client Communication Note: Client called into facility stating she went to [facility] and Latuda was going to be $900. This nurse called [employer], [employer] unable to assist with discount for medication for patient. This nurse called [facility] at [phone] and spoke with Simin. Facility to get return call in 1-3 days to notify if they can help client with discount on medication or not. Client updated on same.
--- NOTE | 2019-04-27 15:01 | BH.COMM ---
Communication Note - Communication with Client Communication Note: Client called into facility stating she went to [facility] and Latuda was going to be $900. This nurse called [employer] card company, [employer] unable to assist with discount for medication for patient. This nurse called [facility] at [phone] and spoke with Simin. Facility to get return call in 1-3 days to notify if they can help client with discount on medication or not. Client updated on same.
--- NOTE | 2019-04-29 09:09 | BH.SGPN.GN ---
Behaviors/Verbalizations/Mental Status: []Eye contact is good. Motor activity is appropriate. Appearance is casual, grooming appropriate. Speech is Appropriate rate and tone. Mood is euthymic, anxious. Affect is congruent. Thoughts are linear and logical. No evidence of psychosis. Reviewed daily check in sheet and pt denies any current SI, plan, or intent. Client Response/Progress/Benefit: []Pt responded well to session, actively engaged throughout and open to processing with the group. Pt indicated current emotion as ?hopeful? and discussed that this is due to successfully completing the IOP program as this is her last day, as well as being able to reflect upon overall progress. Able to identify current mental health wins which included being able to regulate her emotions when faced with potential conflict with her daughter?s father. Shared using positive self-talk in order to do so. Additional win identified as maintaining healthy boundaries in the workplace and not engaging in necessary drama despite her co-workers attempting to bait her into doing so. Appeared to benefit from reflecting upon the progress she has made in challenging anxiety provoking thoughts and utilization of her supports. Pt progress noted per pt report of improved communication and application of boundary setting, as well as healthy skills she has learned in IOP tx. Pt set to discharge from IOP tx given progress made and is recommended to continue with individual outpatient services. Behaviors/Verbalizations/Mental Status: [] Client Response/Progress/Benefit: [] Narrative Note: []
--- NOTE | 2019-04-29 10:25 | BH.SGPN.GN ---
Behaviors/Verbalizations/Mental Status: []Client alert and oriented, casually dressed and groomed. Eye contact good. Motor activity appropriate. Speech within normal limits. Affect congruent, mood euthymic, anxious. Thoughts linear, logical, no signs of hallucinations or delusions. Client Response/Progress/Benefit: []Client engaged in session, actively contributing to discussion and participating in the activity. Client connected with the quote and shared ?we can create problems by not taking action or identifying the problem. Client identified not taking action, overthinking, and habit as things that keep people stuck from solving problems and improving their mental health. Client participated in the discussion of problem-solving examples and the barriers that come with this. Client shared one barrier she used to run into was negative thinking and having a hard time saying no. Client worked with peers to brainstorm the components of A,B,C,D,E problem solving method. Client did well during the group activity and asked for support when she needed it. Client seemed to benefit from learning about problem solving method and rehearsing problem-solving skills in the moment. Progress noted in client?s report of more consistent mood stability, increased confidence, and improved boundary setting. Will discharge from IOP today as client has made significant strides and no longer meets criteria for IOP level of care. Narrative Note: []
--- NOTE | 2019-04-29 11:50 | BH.IGGP_ITS ---
Aftercare Plan - Demographics Treatment End Date:: 04/29/19 Psychiatrist:: Verna Chen Psychiatrist Office #:: [phone] [facility]/IOP Therapist:: Cora Beckham Therapist Phone #:: [phone] - Medications Home Medications: Home Medications proMETHazine tablet [Phenergan] 25 mg PO Q6H PRN PRN #10 tab 07/24/18 omeprazole magnesium 20 mg tablet,delayed release 20 mg PO DAILY 09/14/18 Ergocalciferol (Vitamin D2) [Vitamin D2] 50,000 unit PO QWEEK #4 cap 03/23/19 - Plan Details Progress/Aftercare Plan Details:: Pt has made significant treatment progress since starting IOP and has been able ot successfully return to work as a result. According to pt's self-report as well as scores on DSM 5 cross-cutting measure pt has made progress in reducing sx of irritability, anxiety, and depression. She has seen a decrease in negative & distorted thoughts that impact mood and ability to effectively cope, Increased awareness of triggers, warning signs, barriers, and limits that effect emotion regulation. Pt has reported an improved mood, use of realistic perspective seeking rather than catastrophizing, and motivation levels. Additionally reports increased engagement in things she enjoys and able to successfully able to return to work, manage workplace stress, and advocate for herself in the workplace. Reports increased willingness to reach out to supports and communicate mental health needs, as well as discussed feeling more present and in the moment through use of checking-in with self and grounding skills. She has seen an increased ability to set and keep boundaries with self and others, utilize opposite action and self-coaching/positive affirmations, and is continuing to encourage herself to do the anxious or uncomfortable thing to get needs met. Strategies for Success:: ?Opposite Action!!! ? do what will help you, even when your brain is saying don?t do it, even when it feels uncomfortable, or the bed is lookin real good. ?Setting and following through with boundaries with yourself and others ? no more putting off what is important and will help in the long run, no more concessions for those who don?t respect your needs ?Challenge negative and distorted thought patterns ?Daily and weekly SMART goal setting. - Remember it?s about gradually eating that elephant, you don?t need to take it all at once. 2% is better than 0%. ?Continue to make time for yourself! Self- care is nagy to maintaining progress and staying level! This includes sometimes doing those hard things. Remind yourself you deserve to take time to care for you! ?Small steps to physical, mental, and emotional wellness. Challenge the all or nothing thoughts. It doesn?t have to be huge changes at once. Identify 2 mental health positives and check-in with yourself daily - Appointments Appointments/Referrals to Other Services:: Follow-up appointment with Cora on 05/10/19. Appointment with psychiatry at [facility] on 05/05/19. Appointment with outpatient therapist at [facility] on 05/19/19.
--- NOTE | 2019-04-29 12:40 | BH.DS ---
Discharge Summary - Demographics Date of Admission:: 03/21/19 Discharge Date: 04/29/19 Presenting Problems at Admission:: Patient is a 28-year-old single female who was referred to [facility] program by a friend. She has a history of depression and anxiety which has increased over the past month. She currently lives in a house with her 6-year-old daughter and her parents. She has worked in [employer] for the past 2 years and indicates that this is causing major stress on her due to unrealistic expectations and overwhelming workload. This led to increased anxiety, rumination, and daily panic attacks. Reports she had begun to use marijuana at night as a means of coping with stress from the day. Pt took FMLA due to exacerbation of mental health sx. Pt recently diagnosed with Bipolar Disorder and reports a hx of impulsivity and high-risk behaviors, as well as depressive episodes. Most recent episode depressed, resulting in increased SI, without specific plan or intent. Denies Active SI, plan, or intent. Pt at admmission was endorsing symptoms of depression, isolation, crying spells, hopelessness, worthlessness, and guilt. Additionally, indicated daily panic attacks, ruminating thoughts, irritability, and mood swings. Pt?s sx were impacting her ability to function at baseline, as well as effecting personal, social, and occupational areas. Discharge Diagnoses:: Bipolar 2 disorder most recent episode depressed Reason for Discharge:: Pt has made significant treatment progress since starting IOP and no longer meets criteria for this level of care. - Treatment Progress During Treatment & Response: Pt has made significant treatment progress since starting IOP and has been able ot successfully return to work as a result. According to pt's self-report as well as scores on DSM 5 cross-cutting measure pt has made progress in reducing sx of irritability, anxiety, and depression. She has seen an overall 89% symptom reduction compared to intake scores. Pt also made a 75% decrease in depressive symptoms, 75% in irritability sx, and 90% reduction in anxious symptoms. Pt additionally has shown a decrease in negative thoughts, increased awareness of triggers and warning signs, increase application of healthy change and coping behaviors, improved boundary setting, and improved mood regulation as well. Pt's plan is to follow up with outpatient therapy through [facility] on 05/19/19 and medication management through [facility] scheduled for 05/05/19. Issues Still to be Addressed:: Pt could benefit from continued reinforcement of healthy coping skills, challenging negative thoughts, maintaining boundaries with self and others, ongoing focus on distress tolerance and emotion regulation skills, and engaging in self-care activities. Pt also would benefit from focusing on setting and maintaining daily small goals, checking-in with supports, and advocating for her mental health needs. Discharge Recommendations/Instructions:: Pt's plan is to follow up with outpatient therapy through [facility] on 05/19[facility]19 and medication management through [facility] scheduled for 05/05/19. Discharge Handout: Complete Discharge Handout with client on aftercare options and continuity of care.
--- NOTE | 2019-04-29 12:56 | BH.MDN_ITS ---
Multi-Disciplinary Note - Note 30-min Individual Time Started:: 11:41 Date: 04/29/19 Purpose of session/treatment goals addressed:: Reviewed current symptoms and progress in IOP. Completed DSM cross-cutting scales. Addressed medication concerns. Discussed discharge and aftercare. Eye Contact:: Good Motor Activity:: Appropriate Appearance:: Neat, Casual Speech:: Appropriate Mood:: Euthymic, Anxious Affect:: Full Thoughts:: Linear, Logical, No evidence of hallucinations/delusions noted Staff Interventions:: Therapist used open-ended questions to elicit information and further explore client's thoughts and perception of personal progress throughout IOP program. Therapist reviewed with pt personal supports, warning signs, and coping skills aimed at continuing to promote gains and prevent setbacks. Therapist discussed aftercare plan with client and used strengths- perspective to highlight and empower client on the goals client accomplished. Therapist discussed the benefits of ongoing maintenance and use of daily coping skills. Discussed medication concerns and provided resources. Handed out and reviewed DSM-scales. Client Response:: Pt reports that feeling she has made significant progress since beginning IOP tx and discussed feeling anxious but ready to step down to individual outpatient counseling. Pt additionally indicated that she is experiencing some anxiety related to difficulties in getting her Latuda at an affordable liu but feels she is handling the stress in healthy ways and is doing well to remind herself that if she is unable to do so she can always see if there is another medication that would be similar. Went on to describe noticing most progress in her application of establishing and maintaining healthy boundaries, as well as regular check-in?s with herself and her supports, and daily self-care practices. Reflected upon ways improved self-care has aided in making progress in better regulating emotions and reducing anxiety and irritability. Noted that spending more time crafting, engaging in ?me time? away from her daughter, doing yoga, practicing mindfulness/grounding skills, and using affirmational statements has contributed to decreased irritability, improved communication with her supports, stronger boundaries, improved stress management, and increased positive outlook. Pt identified that she has made progress in improving identifying and challenging distorted thoughts as well, however continues to struggle with this at times of increased stress and would benefit from ongoing focus in this area. Expressed plans to continue to work on improving communication with her supports and identify daily mental health wins as well. Current plan is for pt to follow-up with psychiatry at [facility] scheduled for 05/05/19 and continue with outpatient counseling at [facility], next appointment scheduled for 05/19/19. Risks/Concerns:: No risks or concerns noted. Pt denies any active SI, plan, or intent as of this date 04/29/19. Progress Toward Goals/Plan:: Progress noted. Pt completed DSM cross-cutting scales which showed an 86% reduction in symptoms. Noted reductions in impulsiveness, obsessional thinking and checking behaviors, anger, and depression. Pt is displaying progress in ability to set boundaries, communicate with supports, and practice self-care. Increased ability to identify and acti vely applying distress tolerance skills to prevent crisis escalation. Increased emotion regulation, increased self-care, decreased depression, and increase in healthy coping skills. Consistent use to skills and thought challenging. Continues to struggle with self-confidence and irritability at time; however reports an overall decreased intensity, frequency, and duration. Given pt progress, she is recommended to discharge to individual outpatient counseling at this time. Current plan is for pt to follow-up with psychiatry at [facility] scheduled for 05/05/19 and continue with outpatient counseling at [facility], next appointment scheduled for 05/19/19. Time Stopped:: 12:09
== END 2019-05-06 23:59 ==
LOC: BHIOP 09:00
PROVIDERS: Family Provider Family Medicine; PCP Family Medicine; Referring Provider Psychiatry & Neurology Psychiatry; Visit Provider Psychiatry & Neurology Psychiatry
DX: F31.81 Bipolar II disorder (principal); Z79.899 Other long term (current) drug therapy; F41.9 Anxiety disorder, unspecified; F12.90 Cannabis use, unspecified, uncomplicated; R45.851 Suicidal ideations
CPT/HCPCS: H0035; 90832; 90834; 90847; 90853

== ENCOUNTER → 2019-04-28 17:07 | Outpatient (CLI) | payer BC, SELFPAY ==
[2019-04-28 11:10] VITALS: BMI 40.0
[2019-05-04 11:27] LABS: HPV APTIMA, High Risk Negative (Negative)
== END ==
LOC: LABSPEC 17:08
PROVIDERS: PCP Family Medicine; Referring Provider Obstetrics & Gynecology; Visit Provider Obstetrics & Gynecology
DX: Z12.4 Encounter for screening for malignant neoplasm of cervix (principal)
CPT/HCPCS: 87624; 88175; G0145

== ENCOUNTER → 2019-05-10 15:59 | Outpatient (CLI) | payer BC, SELFPAY ==
[2019-04-28 11:10] VITALS: BMI 40.0
--- NOTE | 2019-05-10 16:00 | BI_ITS ---
MAMMOGRAPHY - BILATERAL SCREENING REASON FOR EXAM: Female, 28 years old. Routine annual screening examination. PERTINENT HISTORY: Mother with breast cancer. Occasional right breast tenderness. TECHNIQUE: Digital bilateral breast cha (3D mammographic acquisition) in the CC and MLO projections. 2-D mediolateral oblique (MLO) and craniocaudad (CC) views of both breasts were obtained. CAD: Full Field Digital Mammography with Computer Added Detection was performed. COMPARISON: Comparison is made with prior examination dated March 01, 2018 and June 02, 2017. FINDINGS: Breast Composition: There are scattered areas of fibroglandular density. There are no dominant masses or suspicious calcifications. Stable benign-appearing bilateral axillary lymph nodes. No other significant abnormalities are identified. There has been no significant change since the prior study. BI/SCREEN MAMM (CAD) W/CHA BILAT IMPRESSION: Stable bilateral screening mammogram. Yearly follow-up mammogram recommended. (A) ASSESSMENT CATEGORY: BIRADS Category 2: Benign. A letter regarding these results will be sent to the patient by the facility within 30 days. Approximately 10% of breast cancers are not detected by mammography. A normal mammogram should not delay biopsy of a clinically suspicious abnormality. [id number] Electronically Signed: Raúl Luke, at 12:52 EST , Service support ,
== END ==
LOC: OPBI 16:00
PROVIDERS: PCP Family Medicine; Referring Provider Obstetrics & Gynecology; Visit Provider Obstetrics & Gynecology
DX: Z12.31 Encounter for screening mammogram for malignant neoplasm of breast (principal); Z80.3 Family history of malignant neoplasm of breast
CPT/HCPCS: 77063; 77067

== ENCOUNTER → 2019-10-18 | Outpatient (CLI) | payer MEDICAID, SELFPAY ==
[2019-10-18 15:20] VITALS: BMI 40.0
[2019-10-18 21:41] LABS: Chlamydia Trachomatis by PCR Negative (Negative); Neisserai gonorrhoeae by PCR Negative (Negative); Probe Check PASS; Sample Adequacy Control PASS; Specimen Processing Control PASS
== END | disposition home or self-care (01) ==
LOC: LABSPEC 17:22
PROVIDERS: PCP Family Medicine; Referring Provider Nurse Practitioner Women's Health; Visit Provider Nurse Practitioner Women's Health
DX: Z11.3 Encounter for screening for infections with a predominantly sexual mode of transmission (principal); B37.3 Candidiasis of vulva and vagina
CPT/HCPCS: 87070; 87205; 87491; 87591

== ENCOUNTER → 2019-11-18 10:06 | Outpatient (CLI) | payer MEDICAID, SELFPAY ==
[2019-11-10 16:50] VITALS: BMI 40.0
[2019-11-18 11:24] LABS: Vitamin D,25 Hydroxy 33.9 ng/mL
[2019-11-20 01:18] LABS: Cancer Antigen 125 6.9 U/mL (0.0-38.1)
== END ==
PROVIDERS: PCP Family Medicine; Referring Provider Obstetrics & Gynecology; Visit Provider Obstetrics & Gynecology
DX: Z15.01 Genetic susceptibility to malignant neoplasm of breast (principal); Z15.09 Genetic susceptibility to other malignant neoplasm
CPT/HCPCS: 36415; 82306; 86304

== ENCOUNTER → 2019-12-05 11:24 | Outpatient (CLI) | payer MEDICAID, SELFPAY ==
[2019-11-10 16:50] VITALS: BMI 40.0
--- NOTE | 2019-12-05 11:25 | US_ITS ---
STUDY: ULTRASOUND OF THE FEMALE PELVIS - COMPLETE REASON FOR EXAM: Female, 29 years old. BRCA1 GENE LMP: TECHNIQUE: TECHNICAL QUALITY: Adequate. COMPARISON: None. FINDINGS: The uterus is anteverted and is in a midline position. The uterus measures cm. Normal uterine cervix. The endometrium measures mm in thickness, and is . There is no demonstrated endometrial mass. There is no demonstrated myometrial mass. I.U.D. - The patient does not have an I.U.D. The right ovary is visualized. The right ovary measures cm. There is no right ovarian cyst or ovarian mass. There is no visualized right adnexal mass or complex lesion. There is normal arterial and normal venous vascularity. The left ovary is visualized. The left ovary measures cm. There is no left ovarian cyst or ovarian mass. There is no visualized left adnexal mass or complex lesion. There is normal arterial and normal venous vascularity. There is no fluid in the cul-de-sac. The pre void volume of the bladder was ml. The post void volume of the bladder was ml. Polycystic ovary disease: No. US/Pelvic (Non ) IMPRESSION: Normal female pelvis. Electronically Signed: Raúl Luke, at 14:47 EDT , Service support ,
--- NOTE | 2019-12-05 11:25 | MRI_ITS ---
STUDY: BILATERAL BREAST MR WITHOUT AND WITH CONTRAST REASON FOR EXAM: Female, 29 years old. BRCA 1 gene positive TECHNIQUE: Multi-sequence multi-echo imaging of both breasts was performed with a dedicated breast coil. T1-weighted and T2-weighted images were performed before the administration of contrast. T1-weighted images were also performed after the administration of IV dotarem 20cc without complications. COMPARISON: Mammogram dated 05/10/2019 and 05/19/2016. FINDINGS: RIGHT BREAST: The breast tissue is scattered fibroglandular densities with no background enhancement. There are no abnormal enhancing masses or areas of non-mass enhancement in the right breast. LEFT BREAST: The breast tissue is scattered fibroglandular densities with no background enhancement. There are no abnormal enhancing masses or areas of non-mass enhancement in the left breast. There are no enlarged or abnormal lymph nodes. There is no abnormality in the visualized regions of the chest or liver. MRI/Breast Bilateral W/O and W IMPRESSION: Unremarkable breast MR examination with contrast. Patient should return in May 2020 for mammography. CATEGORY: BIRADS Category 1: Negative. A letter regarding these results will be sent to the patient by the facility within 30 days. Electronically Signed: Yue Granados DO at 4:35 EDT Tel , Service support ,
--- NOTE | 2019-12-05 11:25 | US_ITS ---
STUDY: ULTRASOUND OF THE FEMALE PELVIS - COMPLETE REASON FOR EXAM: Female, 29 years old. BRCA1 GENE LMP: 11/26/2019. TECHNIQUE: Transabdominal TECHNICAL QUALITY: Adequate. COMPARISON: None. FINDINGS: The uterus is anteverted and is in a midline position. The uterus measures 8.5 cm x 4.2 cm x 3.5 cm. There is a Nabothian cyst of the cervix. The endometrium measures 6.2 mm in thickness, and is hyperechoic. There is no demonstrated endometrial mass. There is no demonstrated myometrial mass. I.U.D. - The patient does not have an I.U.D. The right ovary is visualized. The right ovary measures 3.2 cm x 2.8 cm x 1.7 cm. There is no right ovarian cyst or ovarian mass. There is no visualized right adnexal mass or complex lesion. There is normal arterial and normal venous vascularity. The left ovary is visualized. The left ovary measures 2.6 cm x 2 cm x 1.6 cm. There is no left ovarian cyst or ovarian mass. There is no visualized left adnexal mass or complex lesion. There is normal arterial and normal venous vascularity. There is no fluid in the cul-de-sac. The pre void volume of the bladder was 408 ml. Polycystic ovary disease: No. US/Transvaginal Non- IMPRESSION: Normal female pelvis. Electronically Signed: Raúl Luke, at 14:47 EDT , Service support ,
== END ==
PROVIDERS: PCP Family Medicine; Referring Provider Obstetrics & Gynecology; Visit Provider Obstetrics & Gynecology
DX: Z15.01 Genetic susceptibility to malignant neoplasm of breast (principal); Z15.09 Genetic susceptibility to other malignant neoplasm
CPT/HCPCS: 76830; 76856; 77049; A9575; A4216; C8908

== ENCOUNTER → 2020-05-23 09:03 | Emergency (ER) | payer OTHER, MEDICAID, SELFPAY ==
[2020-05-03 08:34] VITALS: BMI 37.6
[2020-05-23 09:04] VITALS: BP 143/92; PULSE 90; RESP 16; TEMP 35.7; O2SAT 100; BMI 37.1
--- NOTE | 2020-05-23 09:16 | ED.VIS.INJ ---
History of Present Illness Chief Complaint: Wound Informant: Patient Onset: Today, Hours Mechanism/Context: Incised Quality of Pain: - - Presently no pain Location: Anterior mid left thigh Current Severity: Gone Maximum Severity: 5/10 Worsened by: Nothing Relieved by: Nothing Associated Symptoms: Negative for: Parasthesias, Weakness, Loss of function Narrative: Patient is a 29-year-old woman who presents with laceration to the left anterior mid thigh. This occurred at work. She had a paring knife in her pocket. She squatted. The knife went into her thigh. Last tetanus shot was age [age]. She denies paresthesia, anesthesia medics. She has no other complaints. She is not on anticoagulant. Tetanus Immunization: >10 years Prior similar symptoms: No Recent Illness/Hospitalization: No - Past Medical History (1) Anxiety Status: Acute (2) GERD (gastroesophageal reflux disease) Status: Chronic (3) Hiatal hernia Status: Chronic Past Medical History - Allergies and Home Meds Allergies/Adverse Reactions: Allergies amoxicillin [Amoxicillin] Allergy (Verified 05/23/20 09:04) Rash cefazolin Allergy (Verified 05/23/20 09:04) Rash Cephalosporins Allergy (Verified 05/23/20 09:04) Rash Primary Care Physician: Margot Pope [GROUP OF PHYSICIANS] - 2 Days for wound check Fredrick Gonzales MD [Primary Care Provider] - Prior records reviewed: Yes Surgical History: noncontributory Lives: With Family Smoking Status: Former smoker Alcohol: Rare Drugs: None Review of Systems Musculoskeletal: Denies: Myalgias, Arthralgias, Swelling, Extremity Pain Skin: Reports: Wounds. Denies: Rash, Abrasions Neurological: Reports: Weakness, Parasthesia, Numbness Hematologic: Reports: Easy bruising, Easy bleeding Physical Exam Vital Signs/Narrative: Vital Signs Temp Pulse Resp BP Pulse Ox 05/23/20 09:04 96.3 F L 90 16 143/92 H 100 Inital Vital Signs reviewed: Yes General: Well nourished, Well developed, Obese Head: Normocephalic, Atraumatic Eyes: Perrl, EOMI. Negative for: Pale conjunctiva, Scleral icterus Cardiovascular: Regular rate, Regular rhythm Respiratory: No distress Extremeties: She has a 6 mm linear laceration that is into subcutaneous tissue. It is slightly gaping. There is no active bleeding. There is no neurovascular compromise of the left lower extremity. The quadricep tendon is functionally intact. Skin: Normal color, Trauma Neurological: Alert, Oriented x3, Normal Strength, Normal Sensation, Normal Gait Psychological: Normal affect - Glascow Coma Scale Eye Opening: Spontaneous Motor: Obeys Commands Verbal: Oriented Coma Scale Total: 15 Diagnostic/Tx/Re-eval - Medical Decision Making Patient presents with laceration which will require repair. It is gaping. The wound approximates well. Plan is to closed with Dermabond. Please read procedure note Procedures - Lacerations No standard instances Length: 0.24 in Depth: Sub Q Shape: Linear Prep: Chlorhexadine Suture Information: - - Repaired with tissue adhesive ED Disposition - Plan for ED Patient: Disposition: Home or Assisted Living Diagnosis: Laceration of thigh without complication Instructions: ED Laceration: Skin Adhesive Referrals: Fredrick Gonzales MD [Primary Care Provider] - [facility] [GROUP OF PHYSICIANS] - 2 Days for wound check
== END | disposition home or self-care (01) ==
PROVIDERS: Emergency Provider Emergency Medicine; PCP Family Medicine
DX: S71.112A Laceration without foreign body, left thigh, initial encounter (principal); W26.0XXA Contact with knife, initial encounter; Y93.89 Activity, other specified; Y92.9 Unspecified place or not applicable; Y99.0 Civilian activity done for income or pay; E66.9 Obesity, unspecified; Z68.37 Body mass index [BMI] 37.0-37.9, adult; Z87.891 Personal history of nicotine dependence
CPT/HCPCS: 12001

== ENCOUNTER → 2020-10-22 09:44 | Outpatient (CLI) | payer MEDICAID, SELFPAY ==
[2020-10-22 09:11] VITALS: BMI 36.5
[2020-10-22 10:46] LABS: Vitamin D,25 Hydroxy 18.9 ng/mL
[2020-10-22 10:55] LABS: Cholesterol 191 mg/dL (200); Glucose 92 mg/dL (74-106); High Density Lipoprotein 60 mg/dL; Thyroid Stim Hormone (TSH) 1.54 uIU/mL (0.358-3.74); Triglycerides 107 mg/dL; Very Low Density Lipoprotein 21 mg/dL (5-40)
[2020-10-23 08:21] LABS: Cancer Antigen 125 6.1 U/mL (0.0-38.1)
[2020-10-25 03:07] LABS: Chlamydia By Nucleic Acid AMP Negative (Negative)
[2020-10-25 07:57] LABS: Gonococcus By Nucleic Acid AMP Negative (Negative)
== END ==
PROVIDERS: PCP Family Medicine; Referring Provider Obstetrics & Gynecology; Visit Provider Obstetrics & Gynecology
DX: Z01.419 Encounter for gynecological examination (general) (routine) without abnormal findings (principal); Z13.1 Encounter for screening for diabetes mellitus; Z15.01 Genetic susceptibility to malignant neoplasm of breast; Z15.09 Genetic susceptibility to other malignant neoplasm; R10.2 Pelvic and perineal pain
CPT/HCPCS: 36415; 80061; 82306; 82947; 84443; 86304; 87491; 87591

== ENCOUNTER 2021-05-20 08:30 | Outpatient (CLI) | payer MEDICAID, SELFPAY ==
--- NOTE | 2021-05-20 08:49 | US_ITS ---
STUDY: ULTRASOUND OF THE FEMALE PELVIS - COMPLETE REASON FOR EXAM: Female, 30 years old. PAIN LMP: May 2021. TECHNIQUE: Transabdominal and Transvaginal TECHNICAL QUALITY: Adequate. COMPARISON: Comparison is made with prior study 12/05/2019. FINDINGS: The uterus is anteverted and is in a midline position. The uterus measures 8.3 cm x 4.9 cm x 3.4 cm. Normal uterine cervix. The endometrium measures 3.8 mm in thickness, and is hyperechoic. There is no demonstrated endometrial mass. There is no demonstrated myometrial mass. I.U.D. - The patient does not have an I.U.D. The right ovary is visualized. The right ovary measures 5 cm x 4.2 cm x 3 cm. There is a 4.1 cm x 3.7 cm x 2.5 cm right ovarian cyst. There is no visualized right adnexal mass or complex lesion. There is normal arterial and normal venous vascularity. The left ovary is visualized. The left ovary measures 2.1 cm x 1.9 cm x 2 cm. There is no left ovarian cyst or ovarian mass. There is no visualized left adnexal mass or complex lesion. There is normal arterial and normal venous vascularity. There is no fluid in the cul-de-sac. The pre void volume of the bladder was 209 ml. US/Transvaginal Non- IMPRESSION: 4.1 cm and 3.7 cm x 2.5 cm right ovarian cyst. Electronically Signed: Raúl Luke MD at 14:55 EST ,
--- NOTE | 2021-05-20 08:49 | US_ITS ---
STUDY: ULTRASOUND OF THE FEMALE PELVIS - COMPLETE REASON FOR EXAM: Female, 30 years old. PAIN LMP: May 2021. TECHNIQUE: Transabdominal and Transvaginal TECHNICAL QUALITY: Adequate. COMPARISON: Comparison is made with prior study 12/05/2019. FINDINGS: The uterus is anteverted and is in a midline position. The uterus measures 8.3 cm x 4.9 cm x 3.4 cm. Normal uterine cervix. The endometrium measures 3.8 mm in thickness, and is hyperechoic. There is no demonstrated endometrial mass. There is no demonstrated myometrial mass. I.U.D. - The patient does not have an I.U.D. The right ovary is visualized. The right ovary measures 5 cm x 4.2 cm x 3 cm. There is a 4.1 cm x 3.7 cm x 2.5 cm right ovarian cyst. There is no visualized right adnexal mass or complex lesion. There is normal arterial and normal venous vascularity. The left ovary is visualized. The left ovary measures 2.1 cm x 1.9 cm x 2 cm. There is no left ovarian cyst or ovarian mass. There is no visualized left adnexal mass or complex lesion. There is normal arterial and normal venous vascularity. There is no fluid in the cul-de-sac. The pre void volume of the bladder was 209 ml. US/Pelvic (Non ) IMPRESSION: 4.1 cm and 3.7 cm x 2.5 cm right ovarian cyst. Electronically Signed: Raúl Luke MD at 14:55 EST ,
--- NOTE | 2021-05-20 08:53 | MRI_ITS ---
STUDY: BILATERAL BREAST MR WITHOUT AND WITH CONTRAST REASON FOR EXAM: Female, 30 years old. Breast cancer screening. BRCA1 gene positive. Mother with breast cancer. TECHNIQUE: Multi-sequence multi-echo imaging of both breasts was performed with a dedicated breast coil. T1-weighted and T2-weighted images were performed before the administration of contrast. T1-weighted images were also performed after the administration of 20cc of Dotarem intravenously without complications. COMPARISON: Mammograms dated 05/20/2021. FINDINGS: RIGHT BREAST: The breast tissue is fatty with no background enhancement. There are no abnormal enhancing masses or areas of non-mass enhancement in the right breast. LEFT BREAST: The breast tissue is fatty with no background enhancement. There are no abnormal enhancing masses or areas of non-mass enhancement in the left breast. There are no enlarged or abnormal lymph nodes. There is no abnormality in the visualized regions of the chest or liver. MRI/Breast Bilateral W/O and W IMPRESSION: No abnormality on the breast MRI with contrast. Yearly screening mammogram recommended. CATEGORY: BIRADS Category 2: Benign. A letter regarding these results will be sent to the patient by the facility within 30 days. Electronically Signed: Ollie Hernandez MD at 14:07 EST ,
--- NOTE | 2021-05-20 09:13 | BI_ITS ---
MAMMOGRAPHY - BILATERAL SCREENING REASON FOR EXAM: Female, 30 years old. Routine annual screening examination. PERTINENT HISTORY: Mother with breast cancer. BRCA1 gene positive TECHNIQUE: Digital bilateral breast cha (3D mammographic acquisition) in the CC and MLO projections. 2-D mediolateral oblique (MLO) and craniocaudad (CC) views of both breasts were obtained. CAD: Full Field Digital Mammography with Computer Added Detection was performed. COMPARISON: Comparison is made with prior examination dated 05/10/2019 and 03/01/2018. FINDINGS: Breast Composition: There are scattered areas of fibroglandular density. There are no dominant masses or suspicious calcifications. Stable small benign appearing bilateral axillary lymph nodes. No other significant abnormalities are identified. There has been no significant change since the prior study. BI/SCRN MAMM (CAD)W/CHA BILAT IMPRESSION: Stable bilateral screening mammogram. Yearly follow-up mammogram recommended. (A) ASSESSMENT CATEGORY: BIRADS Category 2: Benign. A letter regarding these results will be sent to the patient by the facility within 30 days. Approximately 10% of breast cancers are not detected by mammography. A normal mammogram should not delay biopsy of a clinically suspicious abnormality. [id number] Electronically Signed: Raúl Luke MD at 10:25 EST ,
== END 2021-05-20 23:59 | disposition home or self-care (01) ==
LOC: OPUS 08:31
PROVIDERS: PCP Family Medicine; Referring Provider Obstetrics & Gynecology; Visit Provider Obstetrics & Gynecology
DX: Z12.31 Encounter for screening mammogram for malignant neoplasm of breast (principal); Z15.01 Genetic susceptibility to malignant neoplasm of breast; Z15.09 Genetic susceptibility to other malignant neoplasm; N83.201 Unspecified ovarian cyst, right side; Z80.3 Family history of malignant neoplasm of breast
CPT/HCPCS: 77049; 76830; 76856; 77063; 77067; 93976; A9575; A4216; C8908

== ENCOUNTER 2021-06-27 08:06 | Outpatient (CLI) | payer MEDICAID, SELFPAY ==
--- NOTE | 2021-06-27 08:08 | US_ITS ---
STUDY: ULTRASOUND OF THE FEMALE PELVIS - COMPLETE REASON FOR EXAM: Female, 30 years old. Acute pelvic pain LMP: Unknown. TECHNIQUE: Transabdominal and Transvaginal TECHNICAL QUALITY: Adequate. COMPARISON: Comparison is made with prior study dated 05/20/2021. FINDINGS: The uterus is anteverted and is tilted to the right side of the pelvis. The uterus measures 8.5 cm x 4.8 cm x 3.9 cm. Normal uterine cervix. The endometrium measures 5 mm in thickness, and is hyperechoic. There is no demonstrated endometrial mass. There is no demonstrated myometrial mass. I.U.D. - The patient does not have an I.U.D. The right ovary is visualized. The right ovary measures 2.5 cm x 2 cm x 2 cm. There is no right ovarian cyst or ovarian mass. There is no visualized right adnexal mass or complex lesion. There is normal arterial and normal venous vascularity. The left ovary is visualized. The left ovary measures 3 cm x 2.6 x 2.3 cm. There is a 2 cm x 1.7 cm x 1.5 cm cyst in the left ovary with the small daughter cyst within it. There is no visualized left adnexal mass or complex lesion. There is normal arterial and normal venous vascularity. There is no fluid in the cul-de-sac. The pre void volume of the bladder was 59 ml. Polycystic ovary disease: No. US/Pelvic (Non ) IMPRESSION: 2 cm x 1.7 cm x 1.5 cm cyst in the left ovary with a daughter cyst within it. Electronically Signed: Raúl Luke MD at 14:50 EDT ,
--- NOTE | 2021-06-27 08:08 | US_ITS ---
STUDY: ULTRASOUND OF THE FEMALE PELVIS - COMPLETE REASON FOR EXAM: Female, 30 years old. Acute pelvic pain LMP: Unknown. TECHNIQUE: Transabdominal and Transvaginal TECHNICAL QUALITY: Adequate. COMPARISON: Comparison is made with prior study dated 05/20/2021. FINDINGS: The uterus is anteverted and is tilted to the right side of the pelvis. The uterus measures 8.5 cm x 4.8 cm x 3.9 cm. Normal uterine cervix. The endometrium measures 5 mm in thickness, and is hyperechoic. There is no demonstrated endometrial mass. There is no demonstrated myometrial mass. I.U.D. - The patient does not have an I.U.D. The right ovary is visualized. The right ovary measures 2.5 cm x 2 cm x 2 cm. There is no right ovarian cyst or ovarian mass. There is no visualized right adnexal mass or complex lesion. There is normal arterial and normal venous vascularity. The left ovary is visualized. The left ovary measures 3 cm x 2.6 x 2.3 cm. There is a 2 cm x 1.7 cm x 1.5 cm cyst in the left ovary with the small daughter cyst within it. There is no visualized left adnexal mass or complex lesion. There is normal arterial and normal venous vascularity. There is no fluid in the cul-de-sac. The pre void volume of the bladder was 59 ml. Polycystic ovary disease: No. US/Transvaginal Non- IMPRESSION: 2 cm x 1.7 cm x 1.5 cm cyst in the left ovary with a daughter cyst within it. Electronically Signed: Raúl Luke MD at 14:50 EDT ,
== END 2021-06-27 23:59 | disposition home or self-care (01) ==
LOC: OPUS 08:07
PROVIDERS: PCP Family Medicine; Visit Provider Obstetrics & Gynecology
DX: N83.202 Unspecified ovarian cyst, left side (principal); R10.2 Pelvic and perineal pain
CPT/HCPCS: 76830; 76856; 93976

== ENCOUNTER 2021-10-23 09:29 | Outpatient (CLI) | payer MEDICAID, SELFPAY ==
[2021-10-23 09:56] LABS: Absolute Lymphocyte Count 2.29 X10^3/uL (0.83-4.51); Absolute Neutrophil Count 4.7 X10^3/uL (2.0-7.7); Basophil# 0.05 X10^3/uL; Basophil% 0.7 % (0-1); Eosinophil# 0.19 X10^3/uL; Eosinophils% 2.5 % (0-5); Hematocrit 41.5 % (37-47); Hemoglobin 13.9 g/dL (12.0-15.0); Lymphocyte # 2.29 X10^3/ul (0.83-4.51); Lymphocyte % 30.3 % (19-41); Mean Corp Hgb Conc 33.5 g/dL (32-36); Mean Corpuscular Hgb 29.7 pg (27.0-32.0); Mean Corpuscular Volume 88.7 fL (81-99); Mean Platelet Vol. 11.5 fl (6.2-12.0); Monocyte# 0.34 X10^3/uL; Monocyte% 4.5 % (0-10); NRBC Flagged by Analyzer 0 % (0-5); Neutrophil # 4.65 X10^3/uL (2.7-7.7); Neutrophil % 61.6 % (47-70); Platelet Count 319 K/mm3 (150-450); RBC Distribution Width CV 12.3 % (11.6-14.6); RBC Distribution Width SD 39.5 fl (35.1-43.9); Red Blood Count 4.68 M/mm3 (4.2-5.4); White Blood Count 7.6 K/mm3 (4.4-11.0)
[2021-10-23 12:01] LABS: HIV - WCH Non-Reactive (Nonreactive); Vitamin D,25 Hydroxy 20.3 ng/mL
[2021-10-24 22:06] LABS: HCV Quant. RNA PCR HCV Not Detected IU/mL (.)
[2021-10-25 00:07] LABS: Chlamydia By Nucleic Acid AMP Negative (Negative)
[2021-10-25 07:45] LABS: HSV 1 IgG 8.53 index (0.00-0.90); HSV 2 IgG < 0.91 index (0.00-0.90)
[2021-10-25 07:49] LABS: Gonococcus By Nucleic Acid AMP Negative (Negative)
[2021-10-25 22:29] LABS: HPV APTIMA, High Risk Negative (Negative)
== END 2021-10-23 23:59 | disposition home or self-care (01) ==
LOC: PAVLAB 09:30
PROVIDERS: PCP Family Medicine; Referring Provider Obstetrics & Gynecology; Visit Provider Obstetrics & Gynecology
DX: Z12.4 Encounter for screening for malignant neoplasm of cervix (principal); Z20.2 Contact with and (suspected) exposure to infections with a predominantly sexual mode of transmission; R10.2 Pelvic and perineal pain; R87.619 Unspecified abnormal cytological findings in specimens from cervix uteri
CPT/HCPCS: 36415; 82306; 85025; 86695; 86696; 86703; 87070; 87205; 87491; 87522; 87591; 87624; 88175; G0145

== ENCOUNTER 2021-12-17 08:19 | Day surgery (SDC) | payer MEDICAID, SELFPAY ==
[2021-12-12 16:15] LABS: Hematocrit 40.4 % (37-47); Hemoglobin 13.9 g/dL (12.0-15.0); Mean Corp Hgb Conc 34.4 g/dL (32-36); Mean Corpuscular Hgb 30.5 pg (27.0-32.0); Mean Corpuscular Volume 88.8 fL (81-99); Mean Platelet Vol. 11.4 fl (6.2-12.0); Platelet Count 348 K/mm3 (150-450); RBC Distribution Width CV 12.2 % (11.6-14.6); RBC Distribution Width SD 39.5 fl (35.1-43.9); Red Blood Count 4.55 M/mm3 (4.2-5.4); White Blood Count 7.9 K/mm3 (4.4-11.0)
[2021-12-12 16:32] LABS: Magnesium 2.3 mg/dL (1.6-2.6)
--- NOTE | 2021-12-16 14:41 | PCM.HP.BLA ---
History and Physical Date of Admission: 12/17/21 R#: [id number] Acct: [id number] Name:? OTILIA COLLINS Rep #: [id number] : 1990 ? ? Provider: Dr. Sumaya Andre, DO Age/Sex:? 30/F ? ? Location: [facility] [place] Status: Signed Intake Vital Signs ? 11/21/2215:15 11/21/2215:15 Height 5 ft 7 in 5 ft 7 in Weight: 244 lb 4 oz ? BMI 38.2 ? BP 115/79 ? Intake Visit Reasons:?Total robotic hyst. 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 Abnormal Pap smear of cervix Anemia Anxiety and depression bracca postitive breast cancer gene Contusion of right ear Contusion of right shoulder Dental contusion GERD (gastroesophageal reflux disease) Head injury with loss of consciousness Hiatal hernia Surgical History? H/O LEEP History of tonsillectomy and adenoidectomy Family History? Mother Breast cancer OsteoporosisGrandfather AlcoholismFather DepressionGrandmother AsthmaGrandmother Colon cancer Social History? current occupation:? [employer] Smoking Status:? Former smoker alcohol intake:? current details:? social substance use type:? does not use caffeine:? Yes what type of physical activity do you participate in:? walking frequency:? 1-2 times per week seatbelt use:? always do you feel safe at home:? Yes HPI Total robotic hyst. BSO caresource consent Details: OTILIA COLLINS is a 30 year old ? who presents for preop examination.? She is scheduled for a total robotic hysterectomy bilateral salpingo-oophorectomy and cystoscopy secondary to BRCA 1 positive gene.? She is mildly obese with a BMI of 38.2.? ultrasound showed an 8cm uterus and a 2 cm x 1.7 cm x 1.5 cm cyst in the left ovary with a daughter cyst within it.? She is no longer interested in childbearing And is ready for the hysterectomy with BSO. She plans to continue with breast MRIs and plans for future mastectomy Female Reproductive History Cycle Length: 21-35 Bleeding Duration: 5 Questions: metorrhagia: No, sexually active: Yes, dyspareunia: No and PCB: No Menopausal Symptoms: No hot flashes, No night sweats, No weight change, No mood changes, No difficulty concentrating, No sleep problems and No change in libido Pregancy History ? ? ? 1 ? Elective abortions ? Hx Para ? ? ? 1 ? Spontaneous abortions ? Hx # Term Pregnancies ? Ectopic pregnancies ? Hx # Pregnancies ? Multiple births ? # of living children ? Past Pregnancies Del. Date Name GA/Weeks Outcome Route Bth Weight Gen Labor Lgth Anesthesia Del Locatn Provider FOB Unknown 2012 [place] ? live - full term ? ROS Const Constitutional: Reports as per HPI; Denies fatigue, increased appetite, poor appetite, night sweats, weight gain or weight loss Cardio Card: Denies chest pain Resp Resp: Denies cough or dyspnea GI GI: Reports as per HPI; Denies abdominal pain, bloating, constipation, nausea or vomiting : Reports as per HPI and other; Denies difficulty voiding, dysuria, hematuria, hot flashes, nipple discharge, pelvic pain, prolapse symptoms, urinary frequency, urinary incontinence, urinary urgency, vaginal discharge, vaginal dryness, vaginal odor or vaginal pruritus Skin Skin/Breast: Denies changing lesions, breast mass, breast pain, breast skin changes or nipple discharge Psych Psych: Denies anxiety, change in libido, depression or difficulty concentrating Exam Const General: cooperative, healthy appearing, comfortable, no acute distress, well developed and well groomed [facility] Head: normal to inspection and normocephalic Ears: hearing grossly normal bilaterally and external ears normal Nose: external nose normal Face and sinus: normal facial exam Neck Neck: normal visual inspection, full ROM and no lymphadenopathy Thyroid: thyroid normal Chest Chest palpation & inspection: normal inspection of the chest Resp Effort & Inspection: normal respiratory effort GI Inspection: normal to inspection and non-distended Palpation: soft, no hepatosplenomegaly and no guarding Skin General: no rashes or lesions noted Neuro General: patient alert, moves all extremities and no focal motor deficits Extrem General: normal to inspection and no pedal edema Psych Appearance: grossly normal Mental Status: mental status grossly normal Affect: normal affect Speech and Movement: speech and movement normal Attitude: cooperative Coding Level of Care Code Off vis,est,level 5 Diagnoses BRCA1 positive? Z15.01; Z15.09 Acute pelvic pain, female? R10.2 Assessment and Plan Assessment and Plan (1) BRCA1 positive: ?Status:?Acute ?Comment: clinical exam plus pelvic US, alternate Breast MRI and mamm q 6 months. plan for mri, however she needs a prior auth, in the mean time, will order screening mammogram. ?Plan: After discussing the patient's diagnosis and treatment plan options, patient wishes to proceed with surgical management. The plan is for a total robotic hysterectomy, bilateral salpingo-oophorectomy, and cystoscopy. ?I have discussed with the patient the risks, benefits, and alternatives of the procedure which include but are not limited to risks of anesthesia, bleeding, infection, possible damage to bowel, bladder, or surrounding vasculature which could lead to additional surgery to evaluate any complications.? Patient agrees to procedure and wishes to proceed.? ACOG/uptodate references given for additional information regarding procedure.? (2) Acute pelvic pain, female: ?Status:?Acute ?Comment: pelvic us and kris 125, std screening UPDATE- I have seen the patient and performed any clinically relevant updates to the history and physical exam. Sumaya Andre, DO
[2021-12-17] VITALS (8 sets, daily range): BP systolic 117–135; BP diastolic 68–84; PULSE 52–94; RESP 16; TEMP 36.2–36.8; O2SAT 96–100; BMI 38.3
[2021-12-17 08:44] LABS: Internal QC Validated? YES +Cl - CLEAR BKGD; Pregnancy, Urine Negative Negative
[2021-12-17] MEDS: Acetaminophen 500 MG Tablet 1000 MG PO (09:26)
[2021-12-17] MEDS: Scopolamine 1mg/72hr Patch 1 PATCH TD (09:26)
[2021-12-17] MEDS: Phenazopyridine 95 MG Tablet 190 MG PO (09:27)
[2021-12-17] MEDS: Gabapentin 600 MG Tablet PO (09:27)
[2021-12-17 09:30] LABS: Bedside Glucose 82 mg/dL (74-106)
[2021-12-17] MEDS: Clindamycin 900 MG/50 ML BAG 75 MG IV (09:43)
[2021-12-17] MEDS: Lactated Ringers 1,000 ML 40 ML IV (09:53)
--- NOTE | 2021-12-17 10:50 | HYST_PTH ---
PATIENT: OTILIA BAE LOC: [facility] [place] U#:[id number] AGE/SX: 31/F ROOM: RE12/17/[address]: Dr. Sumaya Andre DO : 1990 BED: DIS: 12/17/2021 SPEC #: [id number] RECD: 12/17/21 13:32 STATUS: DONYA BENITES #: [id number] COREY: 12/17/21 10:[address]: Sumaya Andre DEPT: SURGICAL PATHOLOGY RECD BY: Cristofer Zuleta ENTERED: 12/18/21 08:12 SP TYPE: HYSTERECT OTHR DR: MD Dr. Fredrick Kern MD Tissues: Uterus, NOS Procedures: Surgery Specimen Level V HEADER OPERATION: ERAS, total laparoscopic robotic hysterectomy, bilateral salpingo-oophorectomy PRE-OP DIAGNOSIS: BRCA1 positive, acute pelvic pain TISSUE SUBMITTED: Uterus, cervix, bilateral fallopian tubes and ovaries MICROSCOPIC DIAGNOSIS Uterus, cervix, bilateral fallopian tubes and ovaries, hysterectomy and bilateral salpingo-oophorectomy: Cervix ? chronic inflammation. Endometrium ? proliferative endometrium. Myometrium - no pathologic diagnosis. Bilateral fallopian tubes - no pathologic diagnosis. Right ovary ? a benign epithelial cyst (1 cm in greatest dimension). - Physiologic follicular cysts. Left ovary ? physiologic corpus luteal cyst. SJ:elkin 12/19/2021 MICROSCOPIC DESCRIPTION Slides are reviewed. GROSS DESCRIPTION Received in fixative is one container labeled with the patient's name and designated uterus, cervix, bilateral fallopian tubes and ovaries. The specimen consists of a hysterectomy specimen consisting of uterus with cervix and attached bilateral fallopian tubes and ovaries. The uterus with cervix weighs 89 gm and measures 9.5 x 5.5 x 4 cm. The serosal surface is leyva, glistening. A minute subserosal raised area (possible nodule) is noted. The ectocervical mucosa is unremarkable. The external os is oval and patulous in contour. The endocervical canal measures 3.5 cm in length and the endocervical mucosa is leyva, glistening and unremarkable. The triangular endometrial cavity measures 4.5 cm in length and 2 cm in width. The endometrium is leyva, glistening without any mass lesion and measures 0.2 cm in thickness. Sections of the uterine wall do not reveal any mass lesion and measures 2 cm in thickness. The right fallopian tube measures 7.5 cm in length and 0.8 cm in diameter. The fimbrial end is identified. No tubo-ovarian adhesions are noted. The soft to cystic right ovary measures 2.5 x 3 x 2 cm. Sections reveal multiple cysts filled with clear fluid. The largest cyst measures 2 cm in greatest dimension. The left fallopian tube measures 7.5 cm in length and 0.5 cm in diameter. It is similar appearance to right. Sections reveal unremarkable cut surfaces. The left ovary measures 2.5 x 2 x 1.5 cm. Sections reveal a corpus luteum and a few small cysts. The corpus luteum measures 1.2 cm in greatest dimension. The smaller cyst measures 0.2 to 0.3 cm in greatest dimension. Tube Heater sections are submitted in 12 cassettes as follows: 1 - anterior cervix, 2 - posterior cervix, 3 & 4 - anterior uterine wall, 5 & 6 - posterior uterine wall, 7 ? ? subserosal nodule, 8 - right fallopian tube, 9 & 10 - right ovary, 11 - left fallopian tube, 12??left ovary. / SJ:rg 12/18/2021 TC:5 CPT: 61467
[2021-12-17] MEDS: Bupivacaine 0.25% 30 ML Vial (12:53)
--- NOTE | 2021-12-17 13:10 | DCINST_ITS ---
Discharge Instructions Diet Discharge Diet: No restrictions Activity May resume sexual activity in: 6 weeks Weight Bearing Status: Full weight bearing Dressing / Incision Call your doctor if your incision/area has: Continuous Slow Oozing, Sudden Increased Bleeding, Increased Pain/ Swelling, Increased Redness and Foul Smelling Discharge Call your doctor if you observe: Fever of 101 or Higher, Using more than 1 pad per hour, Shortness of breath, Chest pain and Uncontrolled pain Suture Line Care: Avoid Pulling/Pushing and Avoid Pinching/Bending Remove Dressing in: 1 week (if present) Cleanse incision/area with: Soap & Water and Keep Dressing Clean & Dry Follow Up Care Please Follow Up With: Sumaya Andre DO When: Call to make an appointment with your doctor for a postop visit in 2 and 6 weeks Test Results: Test results from this visit will be discussed in further detail at your follow- up appointment, if applicable. Discharge Plan Admission Primary Reason for Your Visit: ROBOTIC HYSTERECTOMY Attending Provider: Sumaya Andre Primary Care Provider: Fredrick Gonzales Consulting Providers: Adonay Orozco Discharge Orders/Prescriptions Prescriptions: New ibuprofen 600 mg tablet 600 mg PO Q6H PRN (Reason: pain) 7 Days Qty: 28 0RF Rx Instructions: one tab every 6 hrs as needed for mild to moderate pain oxycodone-acetaminophen [Percocet] 5-325 mg tablet 1 tab PO Q4H PRN (Reason: pain) 7 Days Qty: 30 0RF Continued [employer] 18 mg iron- 240 mcg-120 mcg Tablet 1 tab PO DAILY sertraline [Zoloft] 100 mg tablet 50 mg PO DAILY Referrals / Follow Up: Fredrick Gonzales MD [Primary Care Provider] - Disposition Disposition (needs filled in before D/C Order can be placed): Home, Self Care
[2021-12-17] MEDS: Ondansetron 4 MG/2 ML Vial IV (13:12)
--- NOTE | 2021-12-17 13:13 | PCM.OP.BLANK ---
Problems Associated Problem List Diagnoses (1) BRCA1 positive: Operative Report Date of Procedure: 12/17/21 Preoperative diagnosis:BRCA positive, completed child bearing, obesity Postoperative diagnosis:BRCA positive, completed child bearing, obesity Procedure: Total robotic hysterectomy bilateral salpingooophorectomy and cystoscopy Anesthesia: General endotracheal intubation Estimated blood loss: 30 cc Urine output:900cc Drains: None Implanted material: None Complications: None Surgeon: Dr. Sumaya Andre DO Pedigree Tracer: KASIA Anand Findings: 10cm size uterus, normal appearing ovaries and tubes. On exploration of the abdominal cavity the uterus, adnexa, bowel, and liver were found to be normal. Cystoscopy showed no evidence of leaking at approximately 250 cc of normal saline, positive ureteral orifices and jet flow are seen and no suture material was appreciated in the bladder. Specimens removed: Uterus and cervix, Bilateral tubes and ovaries Reason for surgery: This is a 31-year-old G1, P1 who presented to my office for discussion about ovarian cancer prevention due to BRCA 1 positive state. She is no longer interested in childbearing and has a history of heavy periods. She is obese, but not morbidly. Her BMI is 38. The planned procedure is for a robotic hysterectomy the risks benefits and alternatives were discussed with the patient the patient had a clear understanding of the procedure and a consent form was signed. Procedure: The patient was placed in the dorsal low lithotomy position and prepped and draped in the normal sterile fashion both abdominally and in the perineum. Her legs were placed in stirrups a Dickerson catheter was inserted into the urethra without difficulty. A weighted speculum was placed in the vagina and a single-tooth tenaculum was used to grasp the anterior lip of the cervix. A Advincula uterine manipulator was inserted through the cervix without complication. It was then tied into place at the 2 and 10:00 locations on the cervix. Gloves were changed and attention was turned towards the abdomen. Approximately 23 cm above the pubic symphysis in the midline, and after Marcaine injection, a 8 mm incision was made. An 8 mm trocar was inserted through the laparoscope, then inserted into the abdomen under direct visualization using the laparoscope. Good abdominal placement was noted and no complications were appreciated. An air seal device was utilized to create pneumoperitoneum. At 12 cm lateral to the midline on the left and right sides 8 mm accessory ports were placed. Next a left upper quadrant 8 mm maintenance assistant port site was placed. The patient was placed in steep Trendelenburg position. The robot was docked. The hysterectomy was initiated first by taking down the round ligament on each side using the vessel sealer device. The peritoneum between the round ligament and the IP ligament was opened using electrocautery and extended the length of the IP ligament. The IP ligament was then taken down using the vessel sealer device. These areas were freed without complication the broad ligament was then and taken down using the vessel sealer device. Next the bladder flap was taken down without complication. This was done using monopolar cautery to the level of the cervical vaginal junction. After the bladder flap was created, uterine vessels were then isolated and cauterized using the vessel sealer device and EndoShears. At this point the uterine vessels were taken down further starting from the ascending branch, dissecting along the edges of the cervix to the level of the cervical vaginal junction with hemostasis appreciated. The cervical vaginal junction was then using monopolar cautery in a circumferential pattern across the superior aspect of the cervix. The specimen was delivered through the vagina and sent to pathology. The remaining vaginal cuff was then closed using OV lock suture. This was performed in a running technique. Excellent hemostasis was obtained and good closure was noted. Irrigation was then performed. All operative sites were noted to be hemostatic. A cystoscopy was performed with a 70 degree cystoscope through the urethra into the bladder without complication. The bladder was instilled with approximately 250 cc of normal saline. Intraoperative images were made. Ureteral orifices and jets were identified. No suture material was appreciated in the bladder. The bladder was then drained and cystoscope was removed. The abdominal cavity was again examined using the laparoscope after the robot was undocked. All operative sites were noted to be hemostatic. The trochars were removed under direct visualization without complication and pneumoperitoneum was reduced. At this point the skin was then closed using 4-0 Monocryl subcuticular stitch and sealed with surgical glue. The patient tolerated the procedure well sponge lap and needle counts were correct x2 the patient was taken to the recovery room in stable condition. Multi Select Codes Urinary/Genital Urinary/Genital CPT Codes: 27577 Cystoscopy and 93158 TLH+BS/O <250gr uterus
[2021-12-17 14:05] LABS: Bedside Glucose 122 mg/dL (74-106)
== END 2021-12-17 17:26 | disposition home or self-care (01) ==
LOC: SDC 08:21 → AC 08:22
PROVIDERS: Anesthesiology; PCP Family Medicine; Referring Provider Obstetrics & Gynecology; Visit Provider Obstetrics & Gynecology
PROC: 0UT94ZZ Resection of Uterus, Percutaneous Endoscopic Approach (ICD-10-PCS; CPT 58571; principal; 2021-12-17 10:30)
DX: N83.01 Follicular cyst of right ovary (principal); N83.291 Other ovarian cyst, right side; N83.12 Corpus luteum cyst of left ovary; N92.0 Excessive and frequent menstruation with regular cycle; E66.9 Obesity, unspecified; Z15.01 Genetic susceptibility to malignant neoplasm of breast; Z15.09 Genetic susceptibility to other malignant neoplasm; F32.A Depression, unspecified; F41.9 Anxiety disorder, unspecified; Z68.38 Body mass index [BMI] 38.0-38.9, adult; Z79.899 Other long term (current) drug therapy; Z87.891 Personal history of nicotine dependence; Z80.3 Family history of malignant neoplasm of breast; Z80.0 Family history of malignant neoplasm of digestive organs
CPT/HCPCS: 58571; S2900; 00840; 36415; 81025; 82962; 83735; 85027; 86850; 86900; 86901; 88307; J7120; J2405; J3475

== ENCOUNTER → 2022-06-23 | Outpatient (CLI) | payer MEDICAID, SELFPAY ==
--- NOTE | 2022-06-23 13:36 | MRI_ITS ---
STUDY: BILATERAL BREAST MR WITHOUT AND WITH CONTRAST REASON FOR EXAM: Female, 31 years old. BRCA1 positive gene. Screening for breast cancer. TECHNIQUE: Multi-sequence multi-echo imaging of both breasts was performed with a dedicated breast coil. T1-weighted and T2-weighted images were performed before the administration of contrast. T1-weighted images were also performed after the intravenous administration of 20 mL of Clariscan contrast. COMPARISON: Bilateral mammogram dated May 20, 2021. FINDINGS: RIGHT BREAST: The breast tissue is The breasts are almost entirely fatty. with minimal background enhancement. No abnormal enhancing masses or areas of non-mass enhancement Scattered normal lymph nodes in both axillae. LEFT BREAST: The breast tissue is The breasts are almost entirely fatty. with minimal background enhancement. No abnormal enhancing masses or areas of non-mass enhancement Scattered normal lymph nodes in both axillae. No abnormality in the visualized regions of the chest or liver. MRI/Breast Bilateral W/O and W IMPRESSION: No abnormality on the breast MRI with contrast. Yearly screening mammogram alternated with breast MRI would be appropriate, given the history. CATEGORY: BIRADS Category 2: Benign. A letter regarding these results will be sent to the patient by the facility within 30 days. Electronically Signed: Ollie Hernandez, at 10:24 EDT ,
== END | disposition home or self-care (01) ==
LOC: MRI 13:36
PROVIDERS: PCP Family Medicine; Referring Provider Obstetrics & Gynecology; Visit Provider Obstetrics & Gynecology
DX: Z15.01 Genetic susceptibility to malignant neoplasm of breast (principal); Z15.09 Genetic susceptibility to other malignant neoplasm
CPT/HCPCS: 77049; A9575; A4216; C8908

== ENCOUNTER → 2022-11-05 | Outpatient (CLI) | payer OTHER, MEDICAID, SELFPAY ==
--- NOTE | 2022-11-05 13:22 | BI_ITS ---
MAMMOGRAPHY - BILATERAL SCREENING REASON FOR EXAM: Female, 31 years old. Routine annual screening examination. PERTINENT HISTORY: Mother with breast cancer. TECHNIQUE: Digital bilateral breast cha (3D mammographic acquisition) in the CC and MLO projections. 2-D mediolateral oblique (MLO) and craniocaudad (CC) views of both breasts were obtained. CAD: Full Field Digital Mammography with Computer Added Detection was performed. COMPARISON: Comparison is made with prior study dated May 20, 2021 and 2019. FINDINGS: Breast Composition: There are scattered areas of fibroglandular density. There are no dominant masses or suspicious calcifications. Stable small benign-appearing bilateral axillary lymph nodes. No other significant abnormalities are identified. There has been no significant change since the prior study. BI/SCRN MAMM (CAD)W/CHA BILAT IMPRESSION: Stable bilateral screening mammogram. Yearly follow-up mammogram recommended. (A) ASSESSMENT CATEGORY: BIRADS Category 2: Benign. A letter regarding these results will be sent to the patient by the facility within 30 days. Approximately 10% of breast cancers are not detected by mammography. A normal mammogram should not delay biopsy of a clinically suspicious abnormality. [id number] Electronically Signed: Raúl Luke MD at 14:59 EDT ,
== END | disposition home or self-care (01) ==
LOC: OPBI 13:20
PROVIDERS: PCP Family Medicine; Referring Provider Obstetrics & Gynecology; Visit Provider Obstetrics & Gynecology
DX: Z12.31 Encounter for screening mammogram for malignant neoplasm of breast (principal); Z80.3 Family history of malignant neoplasm of breast
CPT/HCPCS: 77063; 77067

== ENCOUNTER → 2023-08-13 | Outpatient (CLI) | payer OTHER, MEDICAID, SELFPAY ==
--- NOTE | 2023-08-13 11:05 | MRI_ITS ---
STUDY: BILATERAL BREAST MR WITHOUT AND WITH CONTRAST REASON FOR EXAM: Female, 32 years old. The RCA positive gene. Screening. TECHNIQUE: Multi-sequence multi-echo imaging of both breasts was performed with a dedicated breast coil. T1-weighted and T2-weighted images were performed before the administration of contrast. T1-weighted images were also performed after the intravenous administration of 20 cc of Clariscan contrast. COMPARISON: None. FINDINGS: RIGHT BREAST: Scattered fibroglandular densities with minimal background enhancement. No abnormal enhancing masses or areas of non-mass enhancement in the right breast. LEFT BREAST: Scattered fibroglandular densities with minimal background enhancement. No abnormal enhancing masses or areas of non-mass enhancement in the right breast. No enlarged or abnormal lymph nodes. No abnormality in the visualized regions of the chest or liver. MRI/Breast Bilateral W/O and W IMPRESSION: No abnormality of the breast MRI with contrast. Alternating breast MRI with contrast with screening mammogram yearly would be appropriate. CATEGORY: BIRADS Category 2: Benign. A letter regarding these results will be sent to the patient by the facility within 30 days. Electronically Signed: Ollie Hernandez MD at 14:40 EDT ,
== END | disposition home or self-care (01) ==
LOC: MRI 10:59
PROVIDERS: PCP Family Medicine; Referring Provider Nurse Practitioner Women's Health; Visit Provider Nurse Practitioner Women's Health
DX: Z15.01 Genetic susceptibility to malignant neoplasm of breast (principal); Z15.02 Genetic susceptibility to malignant neoplasm of ovary; Z15.09 Genetic susceptibility to other malignant neoplasm
CPT/HCPCS: 77049; A9575; A4216; C8908

== ENCOUNTER → 2024-08-19 | Outpatient (CLI) | payer OTHER, SELFPAY ==
--- NOTE | 2024-08-19 15:27 | US_ITS ---
PROCEDURE: KIDNEY AND BLADDER 08/19/2024 REASON FOR EXAM: UTI TECHNIQUE: Bilateral renal ultrasound. COMPARISON: None FINDINGS: RIGHT Kidney Size: 9.8 cm x 5.2 cm x 4.87 Volume: 128.35 mL Cortical Thickness (if discernible): 11 mm (>6mm is normal) LEFT Kidney Size: 10.6 cm x 4.5 cm x 4.7 cm Volume: 115.63 mL Cortical Thickness (if discernible): 12 mm (>6mm is normal) Bladder: Unremarkable US/Kidney and Bladder IMPRESSION: NORMAL RENAL ULTRASOUND. Reading Location: [id number]
== END | disposition home or self-care (01) ==
LOC: US 15:25
PROVIDERS: PCP Family Medicine; Referring Provider Urology; Visit Provider Urology
DX: N39.0 Urinary tract infection, site not specified (principal)
CPT/HCPCS: 76770